=== PATIENT | male | born 1950 | race Caucasian/White ===

== ENCOUNTER 2018-04-06 10:11 | Emergency (ER) | payer OTHER, SELFPAY ==
[2018-04-06 10:12] VITALS: BP 138/85; PULSE 78; RESP 16; TEMP 35.6; O2SAT 95; BMI 27.8
[2018-04-06 10:25] VITALS: BP 138/100; PULSE 71; RESP 14; O2SAT 97
--- NOTE | 2018-04-06 10:26 | CT_ITS ---
STUDY: CT ABDOMEN AND PELVIS WITHOUT CONTRAST REASON FOR EXAM: Male, 68 years old. 4 day history of abdominal pain with constipation and difficulty with urination. RADIATION DOSAGE (If Supplied By Facility): CTDIvol = ( 9.28 ) mGy, DLP = ( 509.88 ) mGycm TECHNIQUE: Transaxial images were obtained from the dome of the diaphragm to the symphysis pubis with oral contrast, and without intravenous contrast. Sagittal and coronal images were reconstructed. Individualized dose optimization techniques were used for this CT. COMPARISON: Comparison is made with prior study dated July 06, 2016. FINDINGS: Increased markings at the lung bases with areas of confluence. This as improved as compared to prior study. Calcified granulomas in both lower lobes. Healed left rib fractures. Coronary artery calcification. Normal liver. Normal gallbladder and extrahepatic biliary system. Normal spleen. Normal pancreas. Normal bilateral adrenal glands. Normal right kidney. Normal left kidney. There is a small hiatal hernia. Normal small intestine. A large amount of fecal material is seen throughout the colon. The appendix is visualized and appears normal. There is scattered atherosclerotic calcification of the abdominal aorta, without a demonstrated aneurysm. Normal inferior vena cava. Normal retroperitoneum. Normal urinary bladder. There is a small umbilical hernia containing fat. Small left inguinal hernia containing fat. Demineralization of the lumbar vertebrae. CT/Abdomen/Pel W ORAL Cont Only IMPRESSION: Large amount of fecal material is seen throughout the colon. Findings suggestive of scarring at both lung bases. Evidence of healed left rib fractures. Electronically Signed: Errol Mckeon MD at 12:44 EDT Tel [phone], Service support ,
--- NOTE | 2018-04-06 10:30 | ED.DCSUM_ITS ---
- ER Visit Summary Date of Service: 04/06/18 Chief Complaint: Abdominal pain History of Present Illness: The patient is a 68 M constipation issues for the last 3 years. He states he has had small bowel movements for the past couple days. His last normal bowel movement was approximately week ago. He presents complaining of a four-day history of abdominal pain that is worse after eating. He states his abdomen gets more bloated. He states the pain seems to move all over his abdomen. He denies fever or chills. Patient does not have a physician and does not take any medications. Last p.o. intake was last evening. Physical Examination: Vital signs are unremarkable. Patient sitting upright in bed no acute distress. Head neck examination is unremarkable. Heart is regular rate and rhythm. Lung sounds are clear. Abdomen is soft with tenderness in the epigastric as well as the right upper quadrant region. Hypoactive bowel sounds are noted throughout. Skin examination reveals slight jaundice appearance. Test Results: CBC reveals normal white count hemoglobin 10.7. Chemistry studies reveal creatinine 1.63. BUN is normal. LFTs significant only for an AST of 44. Lipase is normal. Urine is normal. CT abdomen pelvis with p.o. contrast reveals large amount of fecal material throughout the colon. Scarring is noted at the lung bases. There is evidence of healed rib fractures. Emergency Department Course and Treatment: Patient was given IV fluids here. On repeat evaluation he does feel improved. I advised him that he may start having more bowel movements simply from the oral contrast for the CAT scan. He will be sent home with a bottle of GoLYTELY if he does not have significant results tonight. Treatment Plan: [] Disposition: Discharge Impression: Constipation This note was generated with [employer] dictation software. It may contain incorrect words, spelling, and punctuation that were not noted in review of the chart prior to signing ED Disposition - Plan for ED Patient: Chief Complaint: Abd Pain Referrals: Care Physician,No Primary [Primary Care Provider] -
[2018-04-06] MEDS: 0.9% Normal Saline 1,000 ML 150 ML IV (11:07)
[2018-04-06 11:13] LABS: Absolute Lymphocyte Count 1.18 X10^3/ul (0.83-4.51); Absolute Neutrophil Count 2.6 X10^3/uL (2.0-7.7); Basophil# 0.12 X10^3/uL; Basophil% 2.5 % (0-1); Eosinophil# 0.42 X10^3/uL; Eosinophils% 8.8 % (0-5); Hematocrit 32.2 % (40-54); Hemoglobin 10.7 g/dl (13.0-16.5); Lymphocyte # 1.18 X10^3/ul (4.0); Lymphocyte % 24.8 % (19-41); Mean Corp Hgb Conc 33.2 g/gl (32-36); Mean Corpuscular Hgb 31.5 pg (27.0-32.0); Mean Corpuscular Volume 94.7 fL (80-94); Mean Platelet Vol. 9.2 fl (6.2-12.0); Monocyte# 0.46 X10^3/uL; Monocyte% 9.7 % (0-10); Neutrophil # 2.57 X10^3/uL (2.7-7.7); Platelet Count 377 K/mm3 (150-450); RBC Distribution Width CV 15.2 % (11.6-14.6); White Blood Count 4.8 K/mm3 (4.4-11.0)
[2018-04-06 11:14] LABS: POSITIVE COUNT NO; POSITIVE DIFFERENTIAL NO; POSITIVE MORPHOLOGY NO
[2018-04-06 11:27] LABS: AST(SGOT) 44 U/L (15-37); Alanine Aminotransfer ALT/SGPT 22 U/L (16-61); Albumin, Serum 3.8 g/dL (3.2-5.0); Alkaline Phosphatase 53 U/L (45-117); Anion Gap 10 (5-15); BUN 13 mg/dL (7-18); BUN/Creat Ratio 7.9 RATIO (10-20); Bilirubin, Direct 0.15 mg/dL (0.00-0.30); Chloride 100 mmol/L (98-107); Creatinine, Serum 1.64 mg/dL (0.70-1.30); EST Glomerular Filtration Rate 45 mL/min (>60); Est Glom Filt Rate - Afr Amer 54 mL/min (>60); Estimated Creatinine Clearance 41.42 ml/min; Globulin 4.6 g/dL (2.2-4.2); Glucose 83 mg/dL (74-106); Lipase 120 U/L (73-393); Potassium 3.7 mmol/L (3.5-5.1); Protein, Total 8.4 g/dL (6.4-8.2); Sodium Level 134 mmol/L (136-145)
[2018-04-06 12:14] VITALS: BP 134/90; PULSE 61; RESP 16; O2SAT 98
[2018-04-06 12:44] LABS: Bacteria 0 SEEN /hpf (None Seen); Mucous, Urine 0 SEEN /hpf (<or=2+); Red Blood Cells-Urine 0 SEEN /hpf (0-5); Squamous Epithelial Cells - UA 0 SEEN /hpf (0-5); White Blood Cells 0 SEEN /hpf (0-5)
[2018-04-06 13:04] LABS: Color, Urine Yellow (Yellow); Glucose, Dipstick Normal (Normal); Ketone-Dipstick 5 mg/dl (Negative); Leukocyte Esterase-Dipstick Negative /ul (Negative); Nitrite-Dipstick Negative (Negative); Occult Blood-Urine Negative /ul (Negative); Protein-Dipstick 15 mg/dl (Negative); Specific Gravity, Urine 1.015 (1.002-1.030); Urine Bilirubin Dipstick Negative (Negative); Urine Clarity Clear (Clear); Urine Urobilinogen Normal (Normal); Urine pH 6.5 (5.0 - 8.0)
[2018-04-06 13:50] VITALS: BP 135/104; PULSE 67; RESP 16; O2SAT 97
--- NOTE | 2018-04-06 14:05 | ED.DEP ---
ED Disposition - Plan for ED Patient: Disposition: Home or Assisted Living Chief Complaint: Abd Pain Instructions: ED Constipation Additional Instructions: Physician directory provided to establish a primary care doctor.
[2018-04-06 14:21] VITALS: BP 148/91; PULSE 65; RESP 16; O2SAT 96
== END 2018-04-06 14:30 | disposition home or self-care (01) ==
PROVIDERS: Emergency Provider Emergency Medicine
DX: K59.00 Constipation, unspecified (principal); Z87.442 Personal history of urinary calculi; Z87.891 Personal history of nicotine dependence
CPT/HCPCS: 74176; 80048; 80076; 81001; 83690; 85025; 96360; 96361; 99283; J7030

== ENCOUNTER 2018-04-09 19:27 | Emergency (ER) | payer OTHER, SELFPAY ==
[2018-04-09 19:29] VITALS: BP 128/83; PULSE 81; RESP 17; TEMP 36.9; O2SAT 98; BMI 27.8
--- NOTE | 2018-04-09 19:59 | CT_ITS ---
STUDY: CT ABDOMEN AND PELVIS WITHOUT CONTRAST REASON FOR EXAM: Male, 68 years old. Abdominal pain. RADIATION DOSAGE (If Supplied By Facility): CTDIvol = ( 8.04 ) mGy, DLP = ( 417.76 ) mGycm TECHNIQUE: Transaxial images were obtained from the dome of the diaphragm to the symphysis pubis without oral contrast, and without intravenous contrast. Sagittal and coronal images were reconstructed. Individualized dose optimization techniques were used for this CT. COMPARISON: 04/06/2018. FINDINGS: Mild fibrotic changes are again noted in the lung bases. Multiple calcified granulomas are noted. The visualized portions of the heart are within normal limits. Normal liver. Normal gallbladder and extrahepatic biliary system. Normal spleen. Normal pancreas. Normal bilateral adrenal glands. Normal right kidney. Normal left kidney. The aorta is normal in caliber, with moderate atherosclerotic calcification. The colon is mildly distended, increased compared to the prior study. Stool burden has significantly decreased compared to prior examination. The rectum is moderately distended and stool-filled, increased compared to the prior study. There is no proximal small bowel obstruction. The appendix is normal. There is no free fluid, free air, or organized collection. Normal urinary bladder. Normal abdominal wall. Old left rib fractures are noted, with internal fixation. CT/Abdomen/Pelvis without Cont IMPRESSION: 1. Mildly increased gaseous colonic distention is presumed secondary to laxative treatment. Please correlate. There is significant interval decrease in stool burden. 2. Rectum is moderately distended and stool-filled, increased compared to the prior study, consistent with interval passage of stool. 3. Mild chronic fibrosis in the lung bases. 4. Old granulomatous disease. Additional chronic findings are noted above. Electronically Signed: Mary Gates MD at 20:49 EDT Tel , Service support ,
[2018-04-09] MEDS: 0.9% Normal Saline 1,000 ML 125 ML IV (20:21)
[2018-04-09 20:26] LABS: Absolute Lymphocyte Count 1.58 X10^3/ul (0.83-4.51); Absolute Neutrophil Count 2.7 X10^3/uL (2.0-7.7); Basophil# 0.07 X10^3/uL; Basophil% 1.3 % (0-1); Eosinophil# 0.53 X10^3/uL; Eosinophils% 9.9 % (0-5); Hematocrit 33.9 % (40-54); Hemoglobin 11.4 g/dl (13.0-16.5); Lymphocyte # 1.58 X10^3/ul (4.0); Lymphocyte % 29.6 % (19-41); Mean Corp Hgb Conc 33.6 g/gl (32-36); Mean Corpuscular Hgb 31.5 pg (27.0-32.0); Mean Corpuscular Volume 93.6 fL (80-94); Monocyte# 0.42 X10^3/uL; Monocyte% 7.9 % (0-10); Neutrophil # 2.73 X10^3/uL (2.7-7.7); Neutrophil % 51.3 % (47-70); Platelet Count 377 K/mm3 (150-450); RBC Distribution Width CV 15.2 % (11.6-14.6); RBC Distribution Width SD 52.1 fl (35.1-43.9); Red Blood Count 3.62 M/mm3 (4.6-6.2); White Blood Count 5.3 K/mm3 (4.4-11.0)
[2018-04-09 20:27] LABS: POSITIVE COUNT NO; POSITIVE DIFFERENTIAL NO; POSITIVE MORPHOLOGY NO
[2018-04-09 20:37] LABS: ALB/GLOB Ratio 0.9 RATIO (0.9-2.4); AST(SGOT) 44 U/L (15-37); Alanine Aminotransfer ALT/SGPT 20 U/L (16-61); Albumin, Serum 3.9 g/dL (3.2-5.0); Alkaline Phosphatase 53 U/L (45-117); Anion Gap 8 (5-15); BUN 10 mg/dL (7-18); BUN/Creat Ratio 7.1 RATIO (10-20); Calcium,Total 8.9 mg/dL (8.5-10.1); Chloride 102 mmol/L (98-107); Creatinine, Serum 1.41 mg/dL (0.70-1.30); EST Glomerular Filtration Rate 53 mL/min (>60); Est Glom Filt Rate - Afr Amer 65 mL/min (>60); Estimated Creatinine Clearance 48.18 ml/min; Globulin 4.5 g/dL (2.2-4.2); Glucose 82 mg/dL (74-106); Potassium 4.1 mmol/L (3.5-5.1); Protein, Total 8.4 g/dL (6.4-8.2); Sodium Level 134 mmol/L (136-145)
[2018-04-09 20:48] LABS: Bacteria 0 SEEN /hpf (None Seen); Mucous, Urine 0 SEEN /hpf (<or=2+); Red Blood Cells-Urine 0 SEEN /hpf (0-5); Squamous Epithelial Cells - UA 0 SEEN /hpf (0-5); White Blood Cells 0 SEEN /hpf (0-5)
[2018-04-09 20:49] LABS: Lactic Acid 0.7 mmol/L (0.4-2.0)
[2018-04-09 20:53] LABS: Color, Urine Yellow (Yellow); Glucose, Dipstick Normal (Normal); Ketone-Dipstick 5 mg/dl (Negative); Leukocyte Esterase-Dipstick 25 /ul (Negative); Nitrite-Dipstick Negative (Negative); Occult Blood-Urine 10 /ul (Negative); Protein-Dipstick 30 mg/dl (Negative); Specific Gravity, Urine 1.015 (1.002-1.030); Urine Bilirubin Dipstick Negative (Negative); Urine Clarity Clear (Clear); Urine Urobilinogen 4 mg/dl (Normal)
[2018-04-09 23:01] VITALS: BP 134/101; PULSE 80; RESP 24; O2SAT 94
--- NOTE | 2018-04-09 23:13 | ED.DCSUM_ITS ---
- ER Visit Summary Date of Service: 04/09/18 Chief Complaint: [Constipation and generalized weakness] History of Present Illness: The patient is a 68 M [presents the emergency department complaining of constipation. Patient states that he generally just feels weak since about noon today. Patient was seen in the emergency department 3 days ago and had a CAT scan of the abdomen and pelvis with IV and p.o. contrast. Patient was found to be constipated and sent home with a gallon of what he thinks may be GoLYTELY. Patient states that he drank the GoLYTELY and has had small amounts of some watery stools but still feels distended and bloated. Patient states that he had a hard time urinating earlier in the day. He denies fever. He denies vomiting. He denies blood in stool or black tarry stool.] Physical Examination: [HEENT-PERRLA, EOMI. Cranial nerves II through XII grossly intact. TMs clear. Mucous membranes moist. No adenopathy. Cardiovascular-regular rate and rhythm without murmur or ectopy Lungs-clear to auscultation, chest wall stable without crepitus or subcu emphysema Abdomen-normoactive bowel sounds, soft. Patient has some mild diffuse tenderness. Abdomen slightly distended. Slightly diminished bowel sounds. There is no rebound, rigidity, or perineal signs. Rectal exam-on rectal exam patient had hard stool within the rectal vault but it was too distal to digitally disimpact. Extremities-intact ?4, normal range of motion, normal pulses, atraumatic] Test Results: [CBC with differential obtained showed a white count of 5.3, hemoglobin 11.4, hematocrit 34, platelets 377. Chemistry showed a sodium 134, potassium 4.1, chloride 102, CO2 24. B1 was 10 and creatinine 1.41. Lactate was 0.7. LFTs were normal. Urinalysis was normal. CT scan of the abdomen and pelvis without contrast showed markedly improvement of the large fecal burden however he continues to have large amount of stool within the rectum.] Emergency Department Course and Treatment: [Patient was given a soapsuds enema and had large results with this. Patient at this time states I feel like a new man.] Treatment Plan: [Patient advised use MiraLAX daily and increase fiber intake. Patient advised to drink adequate amounts of water.] Disposition: [Discharged home in stable condition] Impression: [Constipation Abdominal pain-resolved] This note was generated with [employer] dictation software. It may contain incorrect words, spelling, and punctuation that were not noted in review of the chart prior to signing ED Disposition - Plan for ED Patient: Chief Complaint: Dizziness Referrals: Care Physician,No Primary [Primary Care Provider] -
--- NOTE | 2018-04-09 23:13 | ED.DEP ---
ED Disposition - Plan for ED Patient: Chief Complaint: Dizziness Instructions: ED Constipation, ED Weakness [facility] Referrals: Care Physician,No Primary [Primary Care Provider] - Richardson Rico MD [STAFF PHYSICIAN] - 3-5 Days
[2018-04-09 23:42] VITALS: BP 144/90; PULSE 77; RESP 14; O2SAT 94
== END 2018-04-09 23:42 | disposition home or self-care (01) ==
PROVIDERS: Emergency Provider Emergency Medicine
DX: K59.00 Constipation, unspecified (principal); R10.9 Unspecified abdominal pain; R53.1 Weakness; Z87.442 Personal history of urinary calculi; Z87.891 Personal history of nicotine dependence
CPT/HCPCS: 74176; 80053; 81001; 83605; 85025; 96360; 96361; 99285; J7030; A4216

== ENCOUNTER 2019-01-26 17:52 | Emergency (ER) | payer OTHER, SELFPAY ==
[2019-01-26 17:54] VITALS: BP 133/80; PULSE 72; RESP 20; TEMP 36.1; O2SAT 97; BMI 27.4
--- NOTE | 2019-01-26 18:26 | CT_ITS ---
STUDY: CT ABDOMEN AND PELVIS WITHOUT CONTRAST REASON FOR EXAM: Male, 69 years old. 10 pound weight loss in 5 weeks, dizzy, weak, constipated RADIATION DOSAGE (If Supplied By Facility): CTDIvol = ( 21.75 ) mGy, DLP = ( 923.23 ) mGycm TECHNIQUE: Transaxial images were obtained from the dome of the diaphragm to the symphysis pubis without oral contrast, and without intravenous contrast. Sagittal and coronal images were reconstructed. Individualized dose optimization techniques were used for this CT. COMPARISON: Prior study of 04/09/2018 FINDINGS: There are bibasilar calcified nodules consistent with granulomas. The visualized portions of the heart are within normal limits. Normal liver. Normal gallbladder and extrahepatic biliary system. Normal spleen. Normal pancreas. Normal bilateral adrenal glands. Normal right kidney. Normal left kidney. Normal visualized stomach. Normal small intestine. There is a large colonic stool burden. There is a large amount of stool in the rectal vault. The appendix is visualized and appears normal. There are calcified plaques of the abdominal aorta and common iliac arteries. Normal inferior vena cava. Normal retroperitoneum. Normal urinary bladder. The prostate, seminal vesicles, and seminal vesicle angles appear normal. There is a small fat-containing umbilical hernia. Normal osseous structures. CT/Abdomen/Pelvis W IV Cont ONLY IMPRESSION: 1. Calcified granulomas of the lung bases. 2. Large colonic stool burden. 3. Calcified plaques of the abdominal aorta and common iliac arteries. 4. Small fat-containing umbilical hernia. 5. There is no evidence of free intra-abdominal or intrapelvic air, fluid, or inflammatory process. Electronically Signed: David Asif MD at 19:30 EDT , Service support ,
[2019-01-26] MEDS: 0.9% Normal Saline 1,000 ML 1000 ML IV (18:38)
[2019-01-26 18:48] LABS: Absolute Lymphocyte Count 1.72 X10^3/ul (0.83-4.51); Absolute Neutrophil Count 2.3 X10^3/uL (2.0-7.7); Basophil# 0.13 X10^3/uL; Basophil% 2.5 % (0-1); Eosinophil# 0.72 X10^3/uL; Hematocrit 31.7 % (40-54); Hemoglobin 10.8 g/dl (13.0-16.5); Lymphocyte # 1.72 X10^3/ul (4.0); Lymphocyte % 33.4 % (19-41); Mean Corp Hgb Conc 34.1 g/gl (32-36); Mean Corpuscular Hgb 31.6 pg (27.0-32.0); Mean Corpuscular Volume 92.7 fL (80-94); Mean Platelet Vol. 9.1 fl (6.2-12.0); Monocyte# 0.32 X10^3/uL; Monocyte% 6.2 % (0-10); Neutrophil # 2.25 X10^3/uL (2.7-7.7); Neutrophil % 43.7 % (47-70); Platelet Count 383 K/mm3 (150-450); RBC Distribution Width CV 14.6 % (11.6-14.6); RBC Distribution Width SD 49.6 fl (35.1-43.9); Red Blood Count 3.42 M/mm3 (4.6-6.2); White Blood Count 5.2 K/mm3 (4.4-11.0)
[2019-01-26 18:49] LABS: POSITIVE COUNT NO; POSITIVE DIFFERENTIAL NO; POSITIVE MORPHOLOGY NO
[2019-01-26 18:56] LABS: ALB/GLOB Ratio 0.8 RATIO (0.9-2.4); AST(SGOT) 55 U/L (15-37); Alanine Aminotransfer ALT/SGPT 21 U/L (16-61); Albumin, Serum 3.8 g/dL (3.2-5.0); Alkaline Phosphatase 51 U/L (45-117); Anion Gap 4 (5-15); BUN 11 mg/dL (7-18); BUN/Creat Ratio 7.1 RATIO (10-20); Calcium,Total 9.3 mg/dL (8.5-10.1); Chloride 99 mmol/L (98-107); Creatinine, Serum 1.54 mg/dL (0.70-1.30); EST Glomerular Filtration Rate 48 mL/min (>60); Est Glom Filt Rate - Afr Amer 58 mL/min (>60); Globulin 4.8 g/dL (2.2-4.2); Glucose 80 mg/dL (74-106); Lipase 239 U/L (73-393); Potassium 4.1 mmol/L (3.5-5.1); Protein, Total 8.6 g/dL (6.4-8.2); Sodium Level 129 mmol/L (136-145)
--- NOTE | 2019-01-26 21:42 | ED.DCSUM_ITS ---
- ER Visit Summary Date of Service: 01/26/19 Chief Complaint: Abdominal pain History of Present Illness: The patient is a 69 M who states he has been feeling weak and dizzy for the past couple weeks. He has not had a bowel movement he reports for 4 weeks. States that whenever he eats he feels bloated. He denies any fevers. No urinary symptoms. The lightheadedness and dizziness come whenever he is having cramping. He tried some small enemas at home with no relief. He states that he had similar episode last fall. He states that he tried to take some oral medication at that time but it did not work so he came here and got an enema and was successful. States he has begun to lose weight because he has not been eating as much. He also feels dehydrated especially with the heat and humidity Physical Examination: Afebrile vital signs are stable Gen: Well-nourished well-developed Head: Normocephalic atraumatic Eyes: Perrl EOMI ENT: TMs clear no rhinorrhea moist mucous membranes Neck: Supple no lymphadenopathy no JVD nontender CVS: Regular rate rhythm no murmurs normal S1-S2 Respiratory: No distress clear to auscultation bilaterally chest nontender Abdomen: Soft nontender nondistended normal bowel sounds no masses R: There is no fecal impaction. There is stool in the rectal vault but soft Back: Nontender Extremity: Nontender no edema Skin: Normal color no rash Neuro: alert orientated ?3 CN II-XII intact normal strength sensation reflexes gait cerebellar Psych: Normal affect normal mood Test Results: Basic labs negative. CT of the abdomen pelvis demonstrated large fecal material in the colon. Emergency Department Course and Treatment: The patient received IV fluids. He does not clinically have a fecal impaction. Patient received an enema. He did not wish to sit on the toilet. He kept requesting more enemas. At this point patient will be given magnesium citrate to take. As well as Colace. He is to follow-up with primary care Impression: 1. Acute abdominal pain 2. Constipation This note was generated with [employer] software. It may contain incorrect words, spelling, and punctuation that were not noted in review of the chart prior to signing ED Disposition - Plan for ED Patient: Disposition: Home or Assisted Living Instructions: CONSTIPATION (Adult) Prescriptions: Docusate Sodium [Colace] 100 mg PO DAILY #30 cap Prescription Printed Magnesium Citrate 296 ml PO BID #4 bot Prescription Printed Referrals: Keaton Holt MD [STAFF PHYSICIAN] - (as needed for primary care)
[2019-01-26 22:03] VITALS: BP 131/120; RESP 18; O2SAT 98
[2019-01-26 22:04] VITALS: PULSE 68; RESP 18
== END 2019-01-26 22:06 | disposition home or self-care (01) ==
PROVIDERS: Emergency Provider Emergency Medicine
DX: K59.00 Constipation, unspecified (principal); R10.9 Unspecified abdominal pain; R53.1 Weakness; R42 Dizziness and giddiness; Z87.891 Personal history of nicotine dependence
CPT/HCPCS: 74177; 80053; 83690; 85025; 96360; 96361; 99285; J7030; Q9967; A4216

== ENCOUNTER → 2019-03-13 | Outpatient (CLI) | payer SELFPAY, OTHER ==
[2019-03-13 07:35] LABS: Absolute Lymphocyte Count 2.27 X10^3/uL (0.83-4.51); Basophil# 0.13 X10^3/uL; Basophil% 1.9 % (0-1); Eosinophil# 0.81 X10^3/uL; Eosinophils% 12.1 % (0-5); Hematocrit 33.7 % (40-54); Hemoglobin 11.3 g/dL (13.0-16.5); Lymphocyte # 2.27 X10^3/ul (4.0); Mean Corp Hgb Conc 33.5 g/dL (32-36); Mean Corpuscular Hgb 31.7 pg (27.0-32.0); Mean Corpuscular Volume 94.4 fL (80-94); Mean Platelet Vol. 8.9 fl (6.2-12.0); Monocyte# 0.42 X10^3/uL; Monocyte% 6.3 % (0-10); NRBC Flagged by Analyzer 0 % (0-5); Neutrophil # 3.02 X10^3/uL (2.7-7.7); Neutrophil % 45.4 % (47-70); Platelet Count 363 K/mm3 (150-450); RBC Distribution Width CV 14.6 % (11.6-14.6); Red Blood Count 3.57 M/mm3 (4.6-6.2); White Blood Count 6.7 K/mm3 (4.4-11.0)
--- NOTE | 2019-03-13 07:43 | US_ITS ---
STUDY: ABDOMINAL ULTRASOUND - RIGHT UPPER QUADRANT REASON FOR VISIT: Male, 69 years old. Right upper quadrant pain, constipation TECHNIQUE: Ultrasound evaluation of the right upper quadrant was performed with real-time and static abbott-scale imaging. TECHNICAL QUALITY: Limited. Examination limited by bowel gas. COMPARISON: None. FINDINGS: Liver: The liver measures 14.9 cm. There is normal echogenicity of the liver. The bile ducts are within normal limits. There is hepatic color flow. The direction of portal flow is hepatopetal. There is no demonstrated mass lesion. Gallbladder: Normal distended gallbladder. The gallbladder wall measures 2.2 mm. There is a negative sonographic Donaldson's sign. There is no pericholecystic fluid. There is a solitary echogenic gallstone within the gallbladder. Common Bile Duct (C.B.D.): The common bile duct measures 2.9 mm. Pancreas: Visualized pancreas is sonographically normal Right Kidney: Normal size of the right kidney. The right kidney measures 9.3 x 4.9 x 5.3 cm. Normal renal cortex. The right cortex measures 1.4 cm. There is no demonstrated renal mass or cyst. There is no right hydronephrosis. US/Abdomen Limited IMPRESSION: Cholelithiasis, no sonographic evidence of acute cholecystitis Electronically Signed: Prosper Gold MD at 17:11 EDT , Service support ,
[2019-03-13 08:07] LABS: ALB/GLOB Ratio 0.8 RATIO (0.9-2.4); AST(SGOT) 54 U/L (15-37); Alanine Aminotransfer ALT/SGPT 27 U/L (16-61); Albumin, Serum 3.9 g/dL (3.2-5.0); Alkaline Phosphatase 56 U/L (45-117); Anion Gap 4 (5-15); BUN 12 mg/dL (7-18); Calcium,Total 9.1 mg/dL (8.5-10.1); Chloride 100 mmol/L (98-107); EST Glomerular Filtration Rate 50 mL/min (>60); Est Glom Filt Rate - Afr Amer 60 mL/min (>60); Globulin 5.1 g/dL (2.2-4.2); Glucose 89 mg/dL (74-106); Potassium 4.1 mmol/L (3.5-5.1); Sodium Level 132 mmol/L (136-145)
== END | disposition home or self-care (01) ==
DX: R14.0 Abdominal distension (gaseous) (principal); K59.00 Constipation, unspecified; D64.9 Anemia, unspecified; R94.5 Abnormal results of liver function studies; R63.4 Abnormal weight loss; R11.0 Nausea
CPT/HCPCS: 36415; 76705; 80053; 84443; 85025

== ENCOUNTER → 2019-05-02 11:32 | Outpatient (CLI) | payer OTHER, SELFPAY ==
--- NOTE | 2019-05-02 11:40 | RAD_ITS ---
STUDY: X-RAY - RIGHT KNEE REASON FOR EXAM: Male, 69 years old. Knee pain TECHNIQUE: 4 view(s) of the knee. COMPARISON: None. FINDINGS: There is chondrocalcinosis noted of the knee. This can be seen with metabolic disorders such as CPPD. Vascular calcifications are seen. There is degenerative changes with mild medial compartmental narrowing. Adjacent to the medial tibial plateau there is a soft tissue 3 mm hyperdensity may represent a calcification or foreign body. There is a small joint effusion. No acute fracture or dislocation identified. RAD/Knee 4 or More Views IMPRESSION: Small joint effusion. Degenerative changes. Question soft tissue calcification versus foreign body adjacent to the medial tibial plateau. Other findings as above. Electronically Signed: Jorje Gray, at 3:59 EDT Tel , Service support ,
--- NOTE | 2019-05-02 11:40 | RAD_ITS ---
STUDY: X-RAY - LEFT KNEE REASON FOR EXAM: Male, 69 years old. Knee pain TECHNIQUE: 4 view(s) of the knee. COMPARISON: None. FINDINGS: There is chondrocalcinosis noted of the knee. This can be seen with metabolic disorders such as CPPD. Vascular calcifications are seen. There is degenerative changes with mild medial compartmental narrowing. There is a small joint effusion. No acute fracture or dislocation identified. RAD/Knee 4 or More Views IMPRESSION: Small joint effusion. Degenerative changes. No acute fractures seen. Other findings as above. Electronically Signed: Jorje Gray, at 3:59 EDT Tel , Service support ,
[2019-05-02 14:07] LABS: Absolute Lymphocyte Count 1.42 X10^3/uL (0.83-4.51); Absolute Neutrophil Count 5.1 X10^3/uL (2.0-7.7); Basophil# 0.12 X10^3/uL; Basophil% 1.5 % (0-1); Hematocrit 31.7 % (40-54); Hemoglobin 9.9 g/dL (13.0-16.5); Lymphocyte # 1.42 X10^3/ul (4.0); Lymphocyte % 17.4 % (19-41); Mean Corp Hgb Conc 31.2 g/dL (32-36); Mean Corpuscular Hgb 30.2 pg (27.0-32.0); Mean Corpuscular Volume 96.6 fL (80-94); Mean Platelet Vol. 9.4 fl (6.2-12.0); Monocyte# 0.63 X10^3/uL; Monocyte% 7.7 % (0-10); NRBC Flagged by Analyzer 0 % (0-5); Neutrophil # 5.06 X10^3/uL (2.7-7.7); Platelet Count 469 K/mm3 (150-450); RBC Distribution Width CV 14.6 % (11.6-14.6); RBC Distribution Width SD 51.9 fl (35.1-43.9); Red Blood Count 3.28 M/mm3 (4.6-6.2); White Blood Count 8.2 K/mm3 (4.4-11.0)
[2019-05-02 14:14] LABS: Protein, Urine (Random) 18.6 mg/dL (<11.9); Protein:Creat Ratio 219 mg/g CRE (0-200)
[2019-05-02 14:34] LABS: Vitamin B12 782 pg/mL (211-911)
[2019-05-02 14:39] LABS: Anion Gap 8 (5-15); BUN 15 mg/dL (7-18); BUN/Creat Ratio 13.9 RATIO (10-20); Calcium,Total 8.9 mg/dL (8.5-10.1); Chloride 103 mmol/L (98-107); Creatinine, Serum 1.08 mg/dL (0.70-1.30); EST Glomerular Filtration Rate 72 mL/min (>60); Est Glom Filt Rate - Afr Amer 88 mL/min (>60); Ferritin 174 ng/mL (26-388); Glucose 70 mg/dL (74-106); Iron 52 ug/dL (65-175); Iron Binding Capacity,Total 240 ug/dL (250-450); PERCENT IRON SATURATION 21.7 % (15.0-55.0); Potassium 4.5 mmol/L (3.5-5.1); Sodium Level 139 mmol/L (136-145)
== END ==
PROVIDERS: Family Provider Family Medicine; PCP Family Medicine; Referring Provider Family Medicine; Visit Provider Family Medicine
DX: M25.561 Pain in right knee (principal); M25.562 Pain in left knee; D64.9 Anemia, unspecified; R94.4 Abnormal results of kidney function studies
CPT/HCPCS: 36415; 73564; 80048; 82570; 82607; 82728; 82746; 83540; 83550; 84156; 85025

== ENCOUNTER → 2019-05-29 11:35 | Outpatient (CLI) | payer OTHER, SELFPAY ==
[2019-05-29 14:05] LABS: Absolute Neutrophil Count 3.6 X10^3/uL (2.0-7.7); Basophil# 0.13 X10^3/uL; Basophil% 1.9 % (0-1); Eosinophil# 0.93 X10^3/uL; Eosinophils% 13.5 % (0-5); Hematocrit 33.3 % (40-54); Hemoglobin 10.6 g/dL (13.0-16.5); Lymphocyte % 26.1 % (19-41); Mean Corp Hgb Conc 31.8 g/dL (32-36); Mean Corpuscular Hgb 29.9 pg (27.0-32.0); Mean Corpuscular Volume 94.1 fL (80-94); Mean Platelet Vol. 9.1 fl (6.2-12.0); Monocyte# 0.48 X10^3/uL; NRBC Flagged by Analyzer 0 % (0-5); Neutrophil # 3.55 X10^3/uL (2.7-7.7); Neutrophil % 51.4 % (47-70); Platelet Count 421 K/mm3 (150-450); RBC Distribution Width CV 14.6 % (11.6-14.6); RBC Distribution Width SD 50.4 fl (35.1-43.9); Red Blood Count 3.54 M/mm3 (4.6-6.2); White Blood Count 6.9 K/mm3 (4.4-11.0)
== END ==
PROVIDERS: Family Provider Family Medicine; PCP Family Medicine; Referring Provider Family Medicine; Visit Provider Family Medicine
DX: D50.9 Iron deficiency anemia, unspecified (principal)
CPT/HCPCS: 36415; 85025

== ENCOUNTER → 2019-06-26 09:37 | Outpatient (CLI) | payer OTHER, SELFPAY ==
[2019-06-26 11:34] LABS: ALB/GLOB Ratio 0.8 RATIO (0.9-2.4); AST(SGOT) 60 U/L (15-37); Alanine Aminotransfer ALT/SGPT 42 U/L (16-61); Albumin, Serum 3.8 g/dL (3.2-5.0); Alkaline Phosphatase 56 U/L (45-117); Anion Gap 6 (5-15); BUN 12 mg/dL (7-18); Calcium,Total 9.4 mg/dL (8.5-10.1); Chloride 101 mmol/L (98-107); Creatinine, Serum 1.34 mg/dL (0.70-1.30); EST Glomerular Filtration Rate 56 mL/min (>60); Est Glom Filt Rate - Afr Amer 68 mL/min (>60); Globulin 4.7 g/dL (2.2-4.2); Glucose 90 mg/dL (74-106); Potassium 3.6 mmol/L (3.5-5.1); Protein, Total 8.5 g/dL (6.4-8.2); Sodium Level 136 mmol/L (136-145)
== END ==
PROVIDERS: Family Provider Family Medicine; PCP Family Medicine; Referring Provider Nurse Practitioner Adult Health; Visit Provider Nurse Practitioner Adult Health
DX: E03.8 Other specified hypothyroidism (principal)
CPT/HCPCS: 36415; 80053; 84443

== ENCOUNTER → 2019-08-27 14:04 | Outpatient (CLI) | payer OTHER, SELFPAY ==
[2019-08-27 17:38] LABS: ALB/GLOB Ratio 0.9 RATIO (0.9-2.4); AST(SGOT) 54 U/L (15-37); Alanine Aminotransfer ALT/SGPT 35 U/L (16-61); Albumin, Serum 3.8 g/dL (3.2-5.0); Alkaline Phosphatase 44 U/L (45-117); Anion Gap 5 (5-15); BUN 14 mg/dL (7-18); BUN/Creat Ratio 9.5 RATIO (10-20); Calcium,Total 9.4 mg/dL (8.5-10.1); Chloride 101 mmol/L (98-107); Creatinine, Serum 1.47 mg/dL (0.70-1.30); EST Glomerular Filtration Rate 51 mL/min (>60); Est Glom Filt Rate - Afr Amer 61 mL/min (>60); Globulin 4.4 g/dL (2.2-4.2); Glucose 61 mg/dL (74-106); Potassium 3.9 mmol/L (3.5-5.1); Protein, Total 8.2 g/dL (6.4-8.2); Sodium Level 135 mmol/L (136-145)
== END ==
PROVIDERS: PCP Family Medicine; Referring Provider Internal Medicine Endocrinology, Diabetes & Metabolism; Visit Provider Internal Medicine Endocrinology, Diabetes & Metabolism
DX: E03.8 Other specified hypothyroidism (principal)
CPT/HCPCS: 36415; 80053; 84443

== ENCOUNTER → 2019-09-05 09:02 | Outpatient (CLI) | payer OTHER, SELFPAY ==
[2019-09-05 09:04] LABS: Bacteria 0 SEEN /hpf (None Seen); Mucous, Urine 0 SEEN /hpf (<or=2+); Red Blood Cells-Urine 0 SEEN /hpf (0-5); Squamous Epithelial Cells - UA 0 SEEN /hpf (0-5); White Blood Cells 0 SEEN /hpf (0-5)
[2019-09-05 10:28] LABS: Color, Urine Yellow (Yellow); Glucose, Dipstick Normal (Normal); Ketone-Dipstick Negative (Negative); Leukocyte Esterase-Dipstick Negative /ul (Negative); Nitrite-Dipstick Negative (Negative); Occult Blood-Urine Negative /ul (Negative); Protein-Dipstick 30 mg/dl (Negative); Urine Bilirubin Dipstick Negative (Negative); Urine Clarity Clear (Clear); Urine Urobilinogen Normal (Normal); Urine pH 6.5 (5.0 - 8.0)
[2019-09-05 10:31] LABS: Absolute Lymphocyte Count 1.94 X10^3/uL (0.83-4.51); Absolute Neutrophil Count 3.5 X10^3/uL (2.0-7.7); Basophil# 0.13 X10^3/uL; Basophil% 1.9 % (0-1); Eosinophil# 0.82 X10^3/uL; Eosinophils% 11.8 % (0-5); Hematocrit 35.3 % (40-54); Hemoglobin 11.6 g/dL (13.0-16.5); Lymphocyte # 1.94 X10^3/ul (4.0); Lymphocyte % 27.9 % (19-41); Mean Corp Hgb Conc 32.9 g/dL (32-36); Mean Corpuscular Volume 91.2 fL (80-94); Mean Platelet Vol. 9.5 fl (6.2-12.0); Monocyte# 0.54 X10^3/uL; Monocyte% 7.8 % (0-10); NRBC Flagged by Analyzer 0 % (0-5); Neutrophil # 3.51 X10^3/uL (2.7-7.7); Neutrophil % 50.3 % (47-70); Platelet Count 371 K/mm3 (150-450); RBC Distribution Width CV 15.7 % (11.6-14.6); RBC Distribution Width SD 52.6 fl (35.1-43.9); Red Blood Count 3.87 M/mm3 (4.6-6.2)
[2019-09-05 10:50] LABS: Protein, Urine (Random) 30.4 mg/dL (<11.9); Protein:Creat Ratio 211 mg/g CRE (0-200)
[2019-09-05 10:51] LABS: Ferritin 158 ng/mL (26-388); Iron 76 ug/dL (65-175); Iron Binding Capacity,Total 308 ug/dL (250-450); PTHIN 26.8 pg/mL (18.4-80.1); Phosphorus 3.7 mg/dL (2.5-4.9)
[2019-09-05 10:53] LABS: Vitamin D,25 Hydroxy 23.4 ng/mL (29.95-100.01)
== END ==
PROVIDERS: PCP Family Medicine; Referring Provider Family Medicine; Visit Provider Family Medicine
DX: D50.9 Iron deficiency anemia, unspecified (principal); N18.3 Chronic kidney disease, stage 3 (moderate)
CPT/HCPCS: 36415; 81001; 82306; 82570; 82728; 83540; 83550; 83970; 84100; 84156; 85025

== ENCOUNTER → 2019-12-27 13:55 | Outpatient (CLI) | payer OTHER, SELFPAY ==
[2019-12-27 17:27] LABS: Absolute Lymphocyte Count 1.96 X10^3/uL (0.83-4.51); Absolute Neutrophil Count 4.2 X10^3/uL (2.0-7.7); Basophil# 0.14 X10^3/uL; Basophil% 1.8 % (0-1); Eosinophil# 0.84 X10^3/uL; Eosinophils% 10.7 % (0-5); Hematocrit 34.9 % (40-54); Hemoglobin 11.2 g/dL (13.0-16.5); Lymphocyte # 1.96 X10^3/ul (4.0); Lymphocyte % 24.9 % (19-41); Mean Corp Hgb Conc 32.1 g/dL (32-36); Mean Corpuscular Hgb 29.9 pg (27.0-32.0); Mean Corpuscular Volume 93.1 fL (80-94); Mean Platelet Vol. 9.2 fl (6.2-12.0); Monocyte# 0.66 X10^3/uL; Monocyte% 8.4 % (0-10); NRBC Flagged by Analyzer 0 % (0-5); Neutrophil # 4.23 X10^3/uL (2.7-7.7); Neutrophil % 53.8 % (47-70); Platelet Count 486 K/mm3 (150-450); RBC Distribution Width CV 13.8 % (11.6-14.6); RBC Distribution Width SD 46.6 fl (35.1-43.9); Red Blood Count 3.75 M/mm3 (4.6-6.2); White Blood Count 7.9 K/mm3 (4.4-11.0)
[2019-12-27 17:41] LABS: Vitamin D,25 Hydroxy 22.1 ng/mL
[2019-12-27 17:55] LABS: ALB/GLOB Ratio 0.7 RATIO (0.9-2.4); AST(SGOT) 20 U/L (15-37); Alanine Aminotransfer ALT/SGPT 21 U/L (16-61); Albumin, Serum 3.3 g/dL (3.2-5.0); Alkaline Phosphatase 73 U/L (45-117); Anion Gap 9 (5-15); BUN 17 mg/dL (7-18); BUN/Creat Ratio 13.7 RATIO (10-20); Calcium,Total 9.2 mg/dL (8.5-10.1); Chloride 100 mmol/L (98-107); Creatinine, Serum 1.24 mg/dL (0.70-1.30); EST Glomerular Filtration Rate 62 mL/min (>60); Est Glom Filt Rate - Afr Amer 75 mL/min (>60); Glucose 105 mg/dL (74-106); Iron 42 ug/dL (65-175); Potassium 3.7 mmol/L (3.5-5.1); Protein, Total 8.3 g/dL (6.4-8.2); Sodium Level 136 mmol/L (136-145); T4 Free Direct 0.44 ng/dL (0.76-1.46)
== END ==
PROVIDERS: PCP Family Medicine; Referring Provider Family Medicine; Visit Provider Family Medicine
DX: E03.9 Hypothyroidism, unspecified (principal); D64.9 Anemia, unspecified; E55.9 Vitamin D deficiency, unspecified; N18.3 Chronic kidney disease, stage 3 (moderate)
CPT/HCPCS: 36415; 80053; 82306; 83540; 84439; 84443; 85025

== ENCOUNTER → 2020-02-07 14:21 | Outpatient (CLI) | payer OTHER, SELFPAY ==
[2020-02-07 17:29] LABS: Absolute Lymphocyte Count 1.76 X10^3/uL (0.83-4.51); Absolute Neutrophil Count 4.4 X10^3/uL (2.0-7.7); Basophil# 0.12 X10^3/uL; Basophil% 1.6 % (0-1); Eosinophil# 0.62 X10^3/uL; Hematocrit 34.9 % (40-54); Lymphocyte # 1.76 X10^3/ul (4.0); Lymphocyte % 22.8 % (19-41); Mean Corp Hgb Conc 31.5 g/dL (32-36); Mean Corpuscular Hgb 28.9 pg (27.0-32.0); Mean Corpuscular Volume 91.6 fL (80-94); Mean Platelet Vol. 9.5 fl (6.2-12.0); Monocyte# 0.84 X10^3/uL; Monocyte% 10.9 % (0-10); NRBC Flagged by Analyzer 0 % (0-5); Neutrophil # 4.35 X10^3/uL (2.7-7.7); Neutrophil % 56.4 % (47-70); Platelet Count 423 K/mm3 (150-450); RBC Distribution Width CV 14.6 % (11.6-14.6); Red Blood Count 3.81 M/mm3 (4.6-6.2); White Blood Count 7.7 K/mm3 (4.4-11.0)
[2020-02-07 18:00] LABS: Ferritin 88 ng/mL (26-388); Iron 55 ug/dL (65-175); Iron Binding Capacity,Total 240 ug/dL (250-450); PERCENT IRON SATURATION 22.9 % (15.0-55.0)
== END ==
PROVIDERS: PCP Family Medicine; Visit Provider Family Medicine
DX: N18.3 Chronic kidney disease, stage 3 (moderate) (principal); D50.9 Iron deficiency anemia, unspecified
CPT/HCPCS: 36415; 82728; 83540; 83550; 85025

== ENCOUNTER → 2020-04-03 10:51 | Outpatient (CLI) | payer OTHER, SELFPAY ==
[2020-04-03 12:43] LABS: Absolute Lymphocyte Count 1.52 X10^3/uL (0.83-4.51); Absolute Neutrophil Count 4.4 X10^3/uL (2.0-7.7); Basophil# 0.11 X10^3/uL; Basophil% 1.5 % (0-1); Eosinophil# 0.62 X10^3/uL; Eosinophils% 8.6 % (0-5); Hematocrit 35.4 % (40-54); Hemoglobin 11.2 g/dL (13.0-16.5); Lymphocyte # 1.52 X10^3/ul (4.0); Lymphocyte % 21.1 % (19-41); Mean Corp Hgb Conc 31.6 g/dL (32-36); Mean Corpuscular Hgb 27.9 pg (27.0-32.0); Mean Corpuscular Volume 88.3 fL (80-94); Mean Platelet Vol. 9.3 fl (6.2-12.0); Monocyte# 0.55 X10^3/uL; Monocyte% 7.6 % (0-10); NRBC Flagged by Analyzer 0 % (0-5); Neutrophil # 4.39 X10^3/uL (2.7-7.7); Neutrophil % 60.8 % (47-70); Platelet Count 572 K/mm3 (150-450); RBC Distribution Width CV 15.1 % (11.6-14.6); Red Blood Count 4.01 M/mm3 (4.6-6.2); White Blood Count 7.2 K/mm3 (4.4-11.0)
[2020-04-03 13:11] LABS: Vitamin B12 496 pg/mL (211-911); Vitamin D,25 Hydroxy 39.1 ng/mL
[2020-04-03 13:30] LABS: Protein:Creat Ratio 148 mg/g CRE (0-200)
[2020-04-03 13:35] LABS: ALB/GLOB Ratio 0.7 RATIO (0.9-2.4); AST(SGOT) 24 U/L (15-37); Alanine Aminotransfer ALT/SGPT 20 U/L (16-61); Albumin, Serum 3.3 g/dL (3.2-5.0); Alkaline Phosphatase 95 U/L (45-117); Anion Gap 8 (5-15); BUN 16 mg/dL (7-18); Calcium,Total 8.9 mg/dL (8.5-10.1); Chloride 103 mmol/L (98-107); Creatinine, Serum 1.14 mg/dL (0.70-1.30); EST Glomerular Filtration Rate 68 mL/min (>60); Est Glom Filt Rate - Afr Amer 82 mL/min (>60); Ferritin 105 ng/mL (26-388); Glucose 80 mg/dL (74-106); Iron 59 ug/dL (65-175); Iron Binding Capacity,Total 311 ug/dL (250-450); Potassium 3.8 mmol/L (3.5-5.1); Protein, Total 8.3 g/dL (6.4-8.2); Sodium Level 137 mmol/L (136-145); T4 Free Direct 0.79 ng/dL (0.76-1.46)
== END ==
PROVIDERS: PCP Family Medicine; Referring Provider Family Medicine; Visit Provider Family Medicine
DX: E03.9 Hypothyroidism, unspecified (principal); N18.3 Chronic kidney disease, stage 3 (moderate); E55.9 Vitamin D deficiency, unspecified; D64.9 Anemia, unspecified
CPT/HCPCS: 36415; 80053; 82306; 82570; 82607; 82728; 82746; 83540; 83550; 84156; 84439; 84443; 85025

== ENCOUNTER 2020-05-12 10:42 | Emergency (ER) | payer OTHER, SELFPAY ==
[2020-05-12 10:43] VITALS: BP 174/97; PULSE 78; RESP 20; TEMP 37.1; O2SAT 96; BMI 28.0
--- NOTE | 2020-05-12 10:48 | ED.DCSUM_ITS ---
History of Present Illness Chief Complaint: Syncope Informant: Patient, Account Service Representative Narrative: Patient has been sick for over 1 week with [id number] illness as has his . He notes cough sore throat some mild shortness of breath (that is not different than normal) and fever. Home health came to swab him. She swabbed his nasopharyngeal space and he became diaphoretic and felt very hot. He began to get pale and eventually had a syncopal episode. By time EMS got there he was ANO x3. He was recovering and in route to the hospital states he feels pretty good and back to his baseline. He denies any known heart conditions. At no point did he experience chest pain, palpitations, or worsening shortness of breath. No loss of bowel or bladder control. Past Medical History - Allergies and Home Meds Allergies/Adverse Reactions: Allergies No Known Allergies Allergy (Verified 01/26/19 17:55) Primary Care Physician: Fabio Packer MD [Primary Care Provider] - Prior records reviewed: Yes Surgical History: noncontributory Lives: Spouse/ Significant Other Smoking Status: Former smoker Drugs: None Review of Systems General: Reports: Chills, Fever, Malaise. Denies: Sweats Eyes: Denies: Visual changes - bilaterally, Diplopia ENT: Reports: Rhinorrhea, Sore throat Cardiovascular: Denies: Chest pain, Palpitations Respiratory: Reports: Dyspnea, Cough. Denies: Dyspnea on exertion Gastrointestinal: Denies: Abdominal pain, Nausea, Vomiting, Diarrhea, Melena, Hematochezia Genitourinary: Denies: Dysuria, Hematuria, Frequency Musculoskeletal: Reports: Myalgias. Denies: Back pain, Extremity Pain Skin: Denies: Rash, Wounds Neurological: Reports: Headache. Denies: Weakness, Numbness Physical Exam Vital Signs/Narrative: Vital Signs Temp Pulse Resp BP Pulse Ox 05/12/20 10:43 98.8 F 78 20 H 174/97 H 96 Inital Vital Signs reviewed: Yes General: Well nourished, Well developed, No Acute Distress Head: Normocephalic, Atraumatic Eyes: Perrl, EOMI ENT: Moist mucous membranes, No rhinorrhea Neck: Supple, Nontender Cardiovascular: Regular rate, Regular rhythm, No murmurs Respiratory: No distress, CTA bilaterally, Chest nontender Abdomen: Soft, Nontender, Nondistended, Normal bowel sounds Back: Nontender, Normal Inspection Extremities: Nontender, No edema Skin: Normal color, No rash Neurological: Alert, Oriented x3, Cranial nerves II-XII grossly intact, Normal Strength, Normal Sensation Psychological: Normal affect, Normal Mood Diagnostic/Tx/Re-eval Clinical Impression(s) from Imaging Studies Chest X-Ray 05/12/20 10:48 IMPRESSION: No acute abnormality is seen. Electronically Signed: Errol Mckeon, at 11:43 EDT , Service support , Laboratory Last Values WBC 7.5 K/mm3 (4.4-11.0) 05/12/20 11:30 RBC 4.35 M/mm3 (4.6-6.2) L 05/12/20 11:30 Hgb 12.3 g/dL (13.0-16.5) L 05/12/20 11:30 Hct 38.4 % (40-54) L 05/12/20 11:30 MCV 88.3 fL (80-94) 05/12/20 11:30 MCH 28.3 pg (27.0-32.0) 05/12/20 11:30 MCHC 32.0 g/dL (32-36) 05/12/20 11:30 RDW Std Deviation 51.3 fl (35.1-43.9) H 05/12/20 11:30 RDW Coeff of Marychuy 15.6 % (11.6-14.6) H 05/12/20 11:30 Plt Count 450 K/mm3 (150-450) 05/12/20 11:30 MPV 9.2 fl (6.2-12.0) 05/12/20 11:30 Immature Gran % (Auto) 1.100 % (0.0-0.9) H 05/12/20 11:30 Neut % (Auto) 74.4 % (47-70) H 05/12/20 11:30 Lymph % (Auto) 14.8 % (19-41) L 05/12/20 11:30 [place] % (Auto) 7.4 % (0-10) 05/12/20 11:30 Eos % (Auto) 1.9 % (0-5) 05/12/20 11:30 Baso % (Auto) 0.4 % (0-1) 05/12/20 11:30 Absolute Neuts (auto) 5.6 X10^3/uL (2.0-7.7) 05/12/20 11:30 Absolute Lymphs (auto) 1.11 X10^3/uL (0.83-4.51) 05/12/20 11:30 Nucleated RBC % 0 % (0-5) 05/12/20 11:30 Sodium 134 mmol/L (136-145) L 05/12/20 11:30 Potassium 3.7 mmol/L (3.5-5.1) 05/12/20 11:30 Chloride 101 mmol/L (98-107) 05/12/20 11:30 Carbon Dioxide 25.0 mmol/L (21.0-32.0) 05/12/20 11:30 Anion Gap 8 (5-15) 05/12/20 11:30 BUN 15 mg/dL (7-18) 05/12/20 11:30 Creatinine 1.32 mg/dL (0.70-1.30) H 05/12/20 11:30 Estim Creat Clear Calc 50.08 ml/min 05/12/20 11:30 Est GFR (MDRD) Af Amer 69 mL/min (>60) 05/12/20 11:30 Est GFR (MDRD) Non-Af 57 mL/min (>60) L 05/12/20 11:30 BUN/Creatinine Ratio 11.4 RATIO (-20) 05/12/20 11:30 Glucose 89 mg/dL (74-106) 05/12/20 11:30 Calcium 8.8 mg/dL (8.5-10.1) 05/12/20 11:30 Troponin I < 0.015 ng/mL (<0.045) 05/12/20 11:30 - EKG Initial EKG Interpretation: Sinus Rhythm, RBBB - EKG demonstrates a normal sinus rhythm at a rate of 77 with a right bundle branch block. No ectopy noted. - Medical Decision Making Patient has had no events on the monitor. His work-up is negative. This is most likely a vasovagal event brought in by the noxious stimuli of nasal swab. Believe he is safe for discharge. ED Disposition - Plan for ED Patient: Disposition: Home or Assisted Living Diagnosis: Vasovagal syncope, Suspected COVID-19 virus infection Instructions: ED VAGAL SYNCOPE Referrals: Fabio Packer MD [Primary Care Provider] - As Needed
--- NOTE | 2020-05-12 10:48 | EKG12_ITS ---
Test Reason : Blood Pressure : / mmHG Vent. Rate : 077 BPM Atrial Rate : 077 BPM P-R Int : 174 ms QRS Dur : 130 ms QT Int : 418 ms P-R-T Axes : 049 -05 027 degrees QTc Int : 473 ms Normal sinus rhythm Right bundle branch block Abnormal ECG Confirmed by FATIMAH DAVIS, CELIA ([id number]), editorial specialist LUIS LECHUGA ([id number]) on 05/13/2020 8:24:34 AM Referred By: GABINO Confirmed By:CELIA SHERIDAN MD
--- NOTE | 2020-05-12 10:48 | RAD_ITS ---
STUDY: X-RAY CHEST REASON FOR EXAM: Male, 70 years old. SYNCOPE TECHNIQUE: Single AP portable view of the chest. COMPARISON: Comparison is made with prior study dated 07/06/2016. FINDINGS: EKG electrodes are seen. The lungs are clear and expanded. There is no demonstrated pleural abnormality. Normal size heart. Normal mediastinum and marco antonio. Normal visualized pulmonary arteries. There is atherosclerotic tortuosity of the aortic arch and descending thoracic aorta. There are diffuse degenerative changes of the visualized thoracic spine. There is evidence of screw and plate fixation of the left sixth ninth and 10th ribs anterolaterally. There is no demonstrated abnormality of the visualized soft tissue structures of the upper abdomen. RAD/Chest 1 View (Portable) IMPRESSION: No acute abnormality is seen. Electronically Signed: Errol Mckeon, at 11:43 EDT , Service support ,
[2020-05-12 11:40] LABS: Absolute Lymphocyte Count 1.11 X10^3/uL (0.83-4.51); Absolute Neutrophil Count 5.6 X10^3/uL (2.0-7.7); Basophil# 0.03 X10^3/uL; Basophil% 0.4 % (0-1); Eosinophil# 0.14 X10^3/uL; Eosinophils% 1.9 % (0-5); Hematocrit 38.4 % (40-54); Hemoglobin 12.3 g/dL (13.0-16.5); Lymphocyte # 1.11 X10^3/ul (4.0); Lymphocyte % 14.8 % (19-41); Mean Corpuscular Hgb 28.3 pg (27.0-32.0); Mean Corpuscular Volume 88.3 fL (80-94); Mean Platelet Vol. 9.2 fl (6.2-12.0); Monocyte# 0.55 X10^3/uL; Monocyte% 7.4 % (0-10); NRBC Flagged by Analyzer 0 % (0-5); Neutrophil # 5.57 X10^3/uL (2.7-7.7); Neutrophil % 74.4 % (47-70); Platelet Count 450 K/mm3 (150-450); RBC Distribution Width CV 15.6 % (11.6-14.6); RBC Distribution Width SD 51.3 fl (35.1-43.9); Red Blood Count 4.35 M/mm3 (4.6-6.2); White Blood Count 7.5 K/mm3 (4.4-11.0)
[2020-05-12 11:51] LABS: Anion Gap 8 (5-15); BUN 15 mg/dL (7-18); BUN/Creat Ratio 11.4 RATIO (10-20); Calcium,Total 8.8 mg/dL (8.5-10.1); Chloride 101 mmol/L (98-107); Creatinine, Serum 1.32 mg/dL (0.70-1.30); EST Glomerular Filtration Rate 57 mL/min (>60); Est Glom Filt Rate - Afr Amer 69 mL/min (>60); Estimated Creatinine Clearance 50.08 ml/min; Glucose 89 mg/dL (74-106); Potassium 3.7 mmol/L (3.5-5.1); Sodium Level 134 mmol/L (136-145)
[2020-05-12 12:03] VITALS: BP 161/103; BP 163/97; PULSE 79; PULSE 83; RESP 17; RESP 19; TEMP 36.3; O2SAT 100; O2SAT 98
[2020-05-12 12:31] VITALS: BP 163/94; PULSE 78; RESP 19; O2SAT 97
== END 2020-05-12 12:39 | disposition home or self-care (01) ==
PROVIDERS: Emergency Provider Emergency Medicine; PCP Family Medicine
DX: R55 Syncope and collapse (principal); R05 Cough; R51.9 Headache, unspecified; J02.9 Acute pharyngitis, unspecified; J34.89 Other specified disorders of nose and nasal sinuses; R68.83 Chills (without fever); R06.00 Dyspnea, unspecified; Z20.828 Contact with and (suspected) exposure to other viral communicable diseases; I45.10 Unspecified right bundle-branch block; Z87.891 Personal history of nicotine dependence
CPT/HCPCS: 71045; 80048; 84484; 85025; 93005; 99285; A4216

== ENCOUNTER → 2020-10-02 10:16 | Outpatient (CLI) | payer OTHER, SELFPAY ==
[2020-10-02 10:25] LABS: Bacteria 0 SEEN /hpf (None Seen); Mucous, Urine 0 SEEN /hpf (<or=2+); Red Blood Cells-Urine 0 SEEN /hpf (0-5); Squamous Epithelial Cells - UA 0 SEEN /hpf (0-5); White Blood Cells 0 SEEN /hpf (0-5)
[2020-10-02 12:09] LABS: Absolute Lymphocyte Count 1.74 X10^3/uL (0.83-4.51); Absolute Neutrophil Count 4.2 X10^3/uL (2.0-7.7); Basophil# 0.13 X10^3/uL; Basophil% 1.8 % (0-1); Eosinophil# 0.45 X10^3/uL; Eosinophils% 6.3 % (0-5); Hematocrit 39.8 % (40-54); Hemoglobin 12.8 g/dL (13.0-16.5); Lymphocyte # 1.74 X10^3/ul (4.0); Lymphocyte % 24.5 % (19-41); Mean Corp Hgb Conc 32.2 g/dL (32-36); Mean Corpuscular Volume 93.2 fL (80-94); Mean Platelet Vol. 9.2 fl (6.2-12.0); Monocyte# 0.52 X10^3/uL; Monocyte% 7.3 % (0-10); NRBC Flagged by Analyzer 0 % (0-5); Neutrophil # 4.24 X10^3/uL (2.7-7.7); Neutrophil % 59.8 % (47-70); Platelet Count 491 K/mm3 (150-450); RBC Distribution Width CV 13.8 % (11.6-14.6); RBC Distribution Width SD 46.9 fl (35.1-43.9); Red Blood Count 4.27 M/mm3 (4.6-6.2); White Blood Count 7.1 K/mm3 (4.4-11.0)
[2020-10-02 12:15] LABS: Protein, Urine (Random) 23.1 mg/dL (<11.9); Protein:Creat Ratio 242 mg/g CRE (0-200)
[2020-10-02 12:21] LABS: PTHIN 25.6 pg/mL (18.4-80.1)
[2020-10-02 12:24] LABS: Vitamin B12 463 pg/mL (211-911); Vitamin D,25 Hydroxy 25.6 ng/mL
[2020-10-02 12:25] LABS: Color, Urine Yellow (Yellow); Glucose, Dipstick Normal (Normal); Ketone-Dipstick Negative (Negative); Leukocyte Esterase-Dipstick Negative /ul (Negative); Nitrite-Dipstick Negative (Negative); Occult Blood-Urine Negative /ul (Negative); Protein-Dipstick 15 mg/dl (Negative); Urine Bilirubin Dipstick Negative (Negative); Urine Clarity Clear (Clear); Urine Urobilinogen Normal (Normal)
[2020-10-02 12:48] LABS: ALB/GLOB Ratio 0.7 RATIO (0.9-2.4); AST(SGOT) 25 U/L (15-37); Alanine Aminotransfer ALT/SGPT 23 U/L (16-61); Albumin, Serum 3.7 g/dL (3.2-5.0); Alkaline Phosphatase 92 U/L (45-117); Anion Gap 4 (5-15); BUN 13 mg/dL (7-18); BUN/Creat Ratio 10.7 RATIO (10-20); Calcium,Total 9.7 mg/dL (8.5-10.1); Chloride 103 mmol/L (98-107); Creatinine, Serum 1.22 mg/dL (0.70-1.30); EST Glomerular Filtration Rate 63 mL/min (>60); Est Glom Filt Rate - Afr Amer 76 mL/min (>60); Ferritin 84 ng/mL (26-388); Glucose 101 mg/dL (74-106); Iron 78 ug/dL (65-175); Iron Binding Capacity,Total 262 ug/dL (250-450); PSA,Total - Annual Screen 0.92 ng/mL (0.00-4.00); Potassium 3.7 mmol/L (3.5-5.1); Protein, Total 8.7 g/dL (6.4-8.2); Sodium Level 137 mmol/L (136-145); T4 Free Direct 0.81 ng/dL (0.76-1.46)
== END ==
PROVIDERS: PCP Family Medicine; Referring Provider Family Medicine; Visit Provider Family Medicine
DX: E03.9 Hypothyroidism, unspecified (principal); E55.9 Vitamin D deficiency, unspecified; N18.30 Chronic kidney disease, stage 3 unspecified; D64.9 Anemia, unspecified; Z12.5 Encounter for screening for malignant neoplasm of prostate
CPT/HCPCS: 80053; 81001; 82306; 82570; 82607; 82728; 82746; 83540; 83550; 83970; 84100; 84153; 84156; 84439; 84443; 85025; G0103

== ENCOUNTER 2021-09-03 09:59 | Outpatient (CLI) | payer OTHER, SELFPAY ==
[2021-09-03 10:08] LABS: Bacteria 0 SEEN /hpf (None Seen); Mucous, Urine 0 SEEN /hpf (<or=2+); Red Blood Cells-Urine 0 SEEN /hpf (0-5); Squamous Epithelial Cells - UA 0 SEEN /hpf (0-5); White Blood Cells 0 SEEN /hpf (0-5)
[2021-09-03 12:05] LABS: Color, Urine Yellow (Yellow); Glucose, Dipstick Normal (Normal); Ketone-Dipstick Negative (Negative); Leukocyte Esterase-Dipstick Negative /ul (Negative); Nitrite-Dipstick Negative (Negative); Occult Blood-Urine Negative /ul (Negative); Protein-Dipstick 15 mg/dl (Negative); Urine Bilirubin Dipstick Negative (Negative); Urine Clarity Clear (Clear); Urine Urobilinogen Normal (Normal)
[2021-09-03 12:27] LABS: Protein, Urine (Random) 22.7 mg/dL (<11.9); Protein:Creat Ratio 151 mg/g CRE (0-200)
[2021-09-03 12:59] LABS: ALB/GLOB Ratio 0.7 RATIO (0.9-2.4); AST(SGOT) 37 U/L (15-37); Alanine Aminotransfer ALT/SGPT 31 U/L (16-61); Albumin, Serum 3.5 g/dL (3.2-5.0); Alkaline Phosphatase 85 U/L (45-117); Anion Gap 5 (5-15); BUN 13 mg/dL (7-18); BUN/Creat Ratio 10.2 RATIO (10-20); Chloride 104 mmol/L (98-107); Creatinine, Serum 1.28 mg/dL (0.70-1.30); EST Glomerular Filtration Rate 59 mL/min (>60); Est Glom Filt Rate - Afr Amer 72 mL/min (>60); Ferritin 67 ng/mL (26-388); Glucose 86 mg/dL (74-106); Iron 88 ug/dL (65-175); Iron Binding Capacity,Total 279 ug/dL (250-450); Potassium 3.8 mmol/L (3.5-5.1); Protein, Total 8.5 g/dL (6.4-8.2); Sodium Level 136 mmol/L (136-145); T4 Free Direct 0.28 ng/dL (0.76-1.46)
== END 2021-09-03 23:59 | disposition home or self-care (01) ==
PROVIDERS: PCP Family Medicine; Referring Provider Family Medicine; Visit Provider Family Medicine
DX: Z12.5 Encounter for screening for malignant neoplasm of prostate (principal); N18.30 Chronic kidney disease, stage 3 unspecified; D50.9 Iron deficiency anemia, unspecified; E03.9 Hypothyroidism, unspecified; E55.9 Vitamin D deficiency, unspecified
CPT/HCPCS: 36415; 80053; 81001; 82306; 82570; 82728; 83540; 83550; 84156; 84439; 84443

== ENCOUNTER → 2021-12-03 | Outpatient (CLI) | payer OTHER, SELFPAY ==
[2021-12-03 15:19] LABS: Absolute Lymphocyte Count 2.05 X10^3/uL (0.83-4.51); Absolute Neutrophil Count 4.6 X10^3/uL (2.0-7.7); Basophil# 0.11 X10^3/uL; Basophil% 1.4 % (0-1); Eosinophil# 0.51 X10^3/uL; Eosinophils% 6.5 % (0-5); Hematocrit 38.2 % (40-54); Hemoglobin 12.4 g/dL (13.0-16.5); Lymphocyte # 2.05 X10^3/ul (0.83-4.51); Lymphocyte % 26.1 % (19-41); Mean Corp Hgb Conc 32.5 g/dL (32-36); Mean Corpuscular Volume 92.3 fL (80-94); Mean Platelet Vol. 9.6 fl (6.2-12.0); Monocyte% 7.7 % (0-10); NRBC Flagged by Analyzer 0 % (0-5); Neutrophil # 4.56 X10^3/uL (2.7-7.7); Neutrophil % 58.2 % (47-70); Platelet Count 419 K/mm3 (150-450); RBC Distribution Width CV 13.3 % (11.6-14.6); RBC Distribution Width SD 45.5 fl (35.1-43.9); Red Blood Count 4.14 M/mm3 (4.6-6.2); White Blood Count 7.8 K/mm3 (4.4-11.0)
[2021-12-03 15:47] LABS: ALB/GLOB Ratio 0.7 RATIO (0.9-2.4); AST(SGOT) 25 U/L (15-37); Alanine Aminotransfer ALT/SGPT 27 U/L (16-61); Albumin, Serum 3.5 g/dL (3.2-5.0); Alkaline Phosphatase 81 U/L (45-117); Anion Gap 6 (5-15); BUN 16 mg/dL (7-18); Calcium,Total 9.3 mg/dL (8.5-10.1); Chloride 105 mmol/L (98-107); Creatinine, Serum 1.14 mg/dL (0.70-1.30); EST Glomerular Filtration Rate 68 mL/min (>60); Est Glom Filt Rate - Afr Amer 82 mL/min (>60); Ferritin 71 ng/mL (26-388); Globulin 4.8 g/dL (2.2-4.2); Glucose 86 mg/dL (74-106); Iron 64 ug/dL (65-175); Iron Binding Capacity,Total 263 ug/dL (250-450); PERCENT IRON SATURATION 24.3 % (15.0-55.0); Potassium 3.9 mmol/L (3.5-5.1); Protein, Total 8.3 g/dL (6.4-8.2); Sodium Level 137 mmol/L (136-145); T4 Free Direct 1.19 ng/dL (0.76-1.46); Thyroid Stim Hormone (TSH) 2.06 uIU/mL (0.358-3.74)
[2021-12-03 16:20] LABS: Vitamin D,25 Hydroxy 67.4 ng/mL
== END | disposition home or self-care (01) ==
LOC: MFPLAB 12:07
PROVIDERS: PCP Family Medicine; Visit Provider Family Medicine
DX: E03.9 Hypothyroidism, unspecified (principal); E55.9 Vitamin D deficiency, unspecified; D50.9 Iron deficiency anemia, unspecified
CPT/HCPCS: 36415; 80053; 82306; 82728; 83540; 83550; 84439; 84443; 85025

== ENCOUNTER 2022-06-10 10:52 | Outpatient (CLI) | payer OTHER, SELFPAY ==
[2022-06-10 12:20] LABS: Absolute Lymphocyte Count 2.03 X10^3/uL (0.83-4.51); Basophil% 1.4 % (0-1); Eosinophil# 0.59 X10^3/uL; Hematocrit 42.4 % (40-54); Hemoglobin 13.8 g/dL (13.0-16.5); Lymphocyte # 2.03 X10^3/ul (0.83-4.51); Lymphocyte % 27.5 % (19-41); Mean Corp Hgb Conc 32.5 g/dL (32-36); Mean Corpuscular Hgb 30.1 pg (27.0-32.0); Mean Corpuscular Volume 92.4 fL (80-94); Mean Platelet Vol. 9.2 fl (6.2-12.0); Monocyte# 0.65 X10^3/uL; Monocyte% 8.8 % (0-10); NRBC Flagged by Analyzer 0 % (0-5); Platelet Count 438 K/mm3 (150-450); RBC Distribution Width CV 14.2 % (11.6-14.6); Red Blood Count 4.59 M/mm3 (4.6-6.2); White Blood Count 7.4 K/mm3 (4.4-11.0)
[2022-06-10 12:37] LABS: PTHIN 57.7 pg/mL (18.4-80.1)
[2022-06-10 12:38] LABS: Vitamin B12 451 pg/mL (211-911); Vitamin D,25 Hydroxy 33.8 ng/mL
[2022-06-10 12:52] LABS: ALB/GLOB Ratio 0.7 RATIO (0.9-2.4); AST(SGOT) 18 U/L (15-37); Alanine Aminotransfer ALT/SGPT 21 U/L (16-61); Albumin, Serum 3.5 g/dL (3.2-5.0); Alkaline Phosphatase 83 U/L (45-117); Anion Gap 6 (5-15); BUN 17 mg/dL (7-18); BUN/Creat Ratio 13.7 RATIO (10-20); Calcium,Total 9.3 mg/dL (8.5-10.1); Chloride 106 mmol/L (98-107); Creatinine, Serum 1.24 mg/dL (0.70-1.30); EST Glomerular Filtration Rate 61 mL/min (>60); Est Glom Filt Rate - Afr Amer 74 mL/min (>60); Ferritin 70 ng/mL (26-388); Globulin 4.9 g/dL (2.2-4.2); Glucose 98 mg/dL (74-106); Iron 112 ug/dL (65-175); Iron Binding Capacity,Total 268 ug/dL (250-450); Phosphorus 2.7 mg/dL (2.5-4.9); Potassium 4.1 mmol/L (3.5-5.1); Protein, Total 8.4 g/dL (6.4-8.2); Sodium Level 138 mmol/L (136-145); T4 Free Direct 1.01 ng/dL (0.76-1.46)
== END 2022-06-10 23:59 | disposition home or self-care (01) ==
LOC: MFPLAB 10:56
PROVIDERS: PCP Family Medicine; Referring Provider Family Medicine; Visit Provider Family Medicine
DX: N18.30 Chronic kidney disease, stage 3 unspecified (principal); D50.9 Iron deficiency anemia, unspecified; E03.9 Hypothyroidism, unspecified; E55.9 Vitamin D deficiency, unspecified
CPT/HCPCS: 36415; 80053; 82306; 82607; 82728; 82746; 83540; 83550; 83970; 84100; 84439; 84443; 85025

== ENCOUNTER → 2023-03-31 | Outpatient (CLI) | payer OTHER, SELFPAY ==
[2023-03-31 10:11] LABS: Bacteria 0 SEEN /hpf (None Seen); Mucous, Urine 0 SEEN /hpf (<or=2+); White Blood Cells 0 SEEN /hpf (0-5)
[2023-03-31 12:32] LABS: Color, Urine Yellow (Yellow); Glucose, Dipstick Normal (Normal); Ketone-Dipstick Negative (Negative); Leukocyte Esterase-Dipstick 25 /ul (Negative); Nitrite-Dipstick Negative (Negative); Occult Blood-Urine Negative /ul (Negative); Protein-Dipstick Negative (Negative); Urine Bilirubin Dipstick Negative (Negative); Urine Clarity Clear (Clear); Urine Urobilinogen Normal (Normal)
[2023-03-31 12:34] LABS: Absolute Lymphocyte Count 2.43 X10^3/uL (0.83-4.51); Absolute Neutrophil Count 3.9 X10^3/uL (2.0-7.7); Basophil# 0.11 X10^3/uL; Basophil% 1.4 % (0-1); Eosinophil# 0.73 X10^3/uL; Eosinophils% 9.3 % (0-5); Lymphocyte # 2.43 X10^3/ul (0.83-4.51); Lymphocyte % 30.8 % (19-41); Mean Corp Hgb Conc 31.7 g/dL (32-36); Mean Corpuscular Hgb 29.3 pg (27.0-32.0); Mean Corpuscular Volume 92.6 fL (80-94); Mean Platelet Vol. 9.7 fl (6.2-12.0); Monocyte# 0.67 X10^3/uL; Monocyte% 8.5 % (0-10); NRBC Flagged by Analyzer 0 % (0-5); Neutrophil # 3.94 X10^3/uL (2.7-7.7); Neutrophil % 49.9 % (47-70); Platelet Count 443 K/mm3 (150-450); RBC Distribution Width CV 13.8 % (11.6-14.6); RBC Distribution Width SD 46.9 fl (35.1-43.9); Red Blood Count 4.43 M/mm3 (4.6-6.2); White Blood Count 7.9 K/mm3 (4.4-11.0)
[2023-03-31 12:39] LABS: Red Blood Cells-Urine 0-5 SEEN /hpf (0-5)
[2023-03-31 12:40] LABS: Squamous Epithelial Cells - UA 0-5 SEEN /hpf (0-5)
[2023-03-31 12:45] LABS: PTHIN 36.4 pg/mL (18.4-80.1)
[2023-03-31 12:46] LABS: Protein, Urine (Random) < 6.0 mg/dL (<11.9); Protein:Creat Ratio 104 mg/g CRE (0-200)
[2023-03-31 12:53] LABS: ALB/GLOB Ratio 0.7 RATIO (0.9-2.4); AST(SGOT) 21 U/L (15-37); Alanine Aminotransfer ALT/SGPT 27 U/L (16-61); Albumin, Serum 3.3 g/dL (3.2-5.0); Alkaline Phosphatase 84 U/L (45-117); Anion Gap 5 (5-15); BUN 14 mg/dL (7-18); Calcium,Total 9.2 mg/dL (8.5-10.1); Chloride 107 mmol/L (98-107); Creatinine, Serum 1.27 mg/dL (0.70-1.30); EST Glomerular Filtration Rate 59 mL/min (>60); Est Glom Filt Rate - Afr Amer 72 mL/min (>60); Globulin 4.5 g/dL (2.2-4.2); Glucose 89 mg/dL (74-106); Phosphorus 2.5 mg/dL (2.5-4.9); Protein, Total 7.8 g/dL (6.4-8.2); Sodium Level 139 mmol/L (136-145); T4 Free Direct 1.44 ng/dL (0.76-1.46); Thyroid Stim Hormone (TSH) 0.82 uIU/mL (0.358-3.74); Vitamin D,25 Hydroxy 34.4 ng/mL
== END | disposition home or self-care (01) ==
LOC: MFPLAB 10:05
PROVIDERS: PCP Family Medicine; Visit Provider Family Medicine
DX: E55.9 Vitamin D deficiency, unspecified (principal); N18.30 Chronic kidney disease, stage 3 unspecified; E03.9 Hypothyroidism, unspecified
CPT/HCPCS: 36415; 80053; 81001; 82306; 82570; 83970; 84100; 84156; 84439; 84443; 85025

== ENCOUNTER 2023-09-09 23:16 | Emergency (ER) | payer OTHER, SELFPAY ==
--- NOTE | 2023-09-09 | RAD_ITS ---
EXAM: XR CHEST, 2 VIEWS CLINICAL INDICATION: cough TECHNIQUE: Frontal and lateral views of the chest. COMPARISON: Single view chest 05/12/2020 FINDINGS: LUNGS AND PLEURAL SPACES: Unremarkable. No consolidation or edema. No pneumothorax. No effusion. HEART: Unremarkable. Cardiac silhouette not enlarged. MEDIASTINUM: Central airways and mediastinal contour are unremarkable. BONES/JOINTS: Prior surgical changes of multiple left ribs. No acute fracture. SOFT TISSUES: Unremarkable. RAD/Chest PA and Lateral IMPRESSION: No acute findings in the chest. Electronically Signed: Chandra Hooper MD at 0:34 EST ,
[2023-09-09 23:17] VITALS: BP 186/88; PULSE 79; RESP 16; TEMP 36.4; O2SAT 94; BMI 29.2
--- NOTE | 2023-09-09 23:31 | CT_ITS ---
EXAM: CT HEAD WITHOUT INTRAVENOUS CONTRAST CLINICAL INDICATION: headache, syncope TECHNIQUE: Multiple axial images were obtained of the head without intravenous contrast. This CT exam was performed using one or more of the following dose reduction techniques: automated exposure control, adjustment of the mA and/or kV according to patient size, and/or use of iterative reconstruction technique. RADIATION DOSE: CTDIvol = 44.99 mGy, DLP = 829.85 mGy-cm COMPARISON: Head CT 07/06/2016 FINDINGS: BRAIN AND EXTRA-AXIAL SPACES: Unremarkable. No intra- or extra-axial hemorrhage. No evidence of acute infarct. No intracranial mass or mass effect. There is preservation of the abbott/white matter interface. Posterior fossa structures are unremarkable. Ventricles are appropriate for age. No hydrocephalus. Basal cisterns are patent. BONES/JOINTS: Unremarkable. No discrete lytic or blastic abnormalities. SINUSES: Bilateral maxillary sinus disease. MASTOID AIR CELLS: Unremarkable. Clear. ORBITS: Visualized globes, extraocular muscles, optic nerves and retrobulbar fat appear unremarkable. CT/Brain/Head without Contrast IMPRESSION: 1. Bilateral maxillary sinus disease. 2. No acute intracranial abnormalities. Electronically Signed: Chandra Hooper MD at 0:33 EST ,
--- NOTE | 2023-09-09 23:32 | EKG12_ITS ---
Test Reason : DYSRHYTHMIA Blood Pressure : / mmHG Vent. Rate : 074 BPM Atrial Rate : 074 BPM P-R Int : 184 ms QRS Dur : 148 ms QT Int : 422 ms P-R-T Axes : 054 -56 035 degrees QTc Int : 468 ms Normal sinus rhythm Right bundle branch block Left anterior fascicular block Bifascicular block Minimal voltage criteria for LVH, may be normal variant ( R in aVL ) Abnormal ECG Confirmed by Meliton Seo ([id number]), pictures editor LUIS LECHUGA ([id number]) on 09/12/2023 9:57:16 AM Referred By: RISHI Confirmed By:Meliton Seo
[2023-09-09] MEDS: 0.9% Normal Saline (1000mL) 1,000 ML 150 ML IV (23:47)
--- NOTE | 2023-09-09 23:52 | EX.ED.DYSGE1 ---
HPI History of Present Illness Chief Complaint: Syncope Informant: patient and spouse/S.O. Onset/Context/Timing Onset: Today Narrative Narrative: Patient presents after a syncopal episode at home. He reports feeling ill the past 2 days with sore throat, congestion, cough, and headache. He states he did not feel well after dinner tonight and went to bed. He was restless and got up to take some medication. He states he remembers standing at the sink trying to read the bottle but could not focus. states he tried to take the medicine but slumped forward over the sink. She was able to move a chair behind him and had him sit. She does report that he lost consciousness for at least 5 minutes. There is no seizure activity noted. Patient states he feels well now. He denies having chest pain, palpitations, or shortness of breath. [facility] Medical History Hypothyroid Home Medications nirmatrelvir 300 mg (150 mg x2)-ritonavir 100 mg tablet,dose pack (Paxlovid) See Rx Instructions PO .COMPLEX #30 tabs 09/10/23 [Rx Last Taken Unknown] Allergy/AdvReac Type Severity Reaction Status Date / Time No Known Allergies Allergy Verified 09/09/23 23:20 Social History Smoking Status: Never smoker ROS ROS ED Constitutional Constitutional ED: Denies chills or fever(s) Eyes Eyes: Denies change in vision or discharge from eye(s) ENT ENT ED: Reports sore throat; Denies discharge from eye(s) or rhinorrhea Cardiovascular Cardiovascular: Denies chest pain or palpitations Respiratory/Chest Respiratory/Chest: Denies cough or dyspnea Gastrointestinal Gastrointestinal: Reports other Details: Decreased p.o. intake ; Denies abdominal pain, nausea or vomiting Genitourinary Genitourinary ED: Denies dysuria Musculoskeletal Musculoskeletal: Denies back pain or extremity pain Integumentary Denies Abrasions or rash Neurologic Neurologic: Reports headache(s) and weakness Psychiatric Psychiatric: Denies anxiety or depression Allergic/Immunologic Allergic/Immunologic ED: Denies lip swelling or urticaria EXAM Physical Exam Const Vital Signs: 09/09/23 23:17 09/09/23 23:21 09/10/23 01:16 Temperature 97.6 F L Temperature Source Temporal Pulse Rate 79 Pulse Rate [Lying] 84 Pulse Rate [Sitting (for 1 minute prior to obtaining)] 72 Pulse Rate [Standing (for 1 minute prior to obtaining)] 75 Respiratory Rate 16 Respiratory Effort Normal Non-Labored Respiratory Pattern Normal Blood Pressure 186/88 H Blood Pressure [Lying] 158/91 H Blood Pressure [Sitting (for 1 minute prior to obtaining)] 142/89 H Blood Pressure [Standing (for 1 minute prior to obtaining)] 174/93 H Blood Pressure Mean 120 Blood Pressure Mean [Lying] 113 Blood Pressure Mean [Sitting (for 1 minute prior to obtaining)] 106 Blood Pressure Mean [Standing (for 1 minute prior to obtaining)] 120 Pulse Ox 94 Oxygen Delivery Method Room Air 09/10/23 00:07 09/10/23 00:10 09/10/23 00:15 Temperature Temperature Source Pulse Rate 75 76 74 Pulse Rate [Lying] Pulse Rate [Sitting (for 1 minute prior to obtaining)] Pulse Rate [Standing (for 1 minute prior to obtaining)] Respiratory Rate 17 20 H 18 Respiratory Effort Respiratory Pattern Blood Pressure 153/88 H Blood Pressure [Lying] Blood Pressure [Sitting (for 1 minute prior to obtaining)] Blood Pressure [Standing (for 1 minute prior to obtaining)] Blood Pressure Mean 107 Blood Pressure Mean [Lying] Blood Pressure Mean [Sitting (for 1 minute prior to obtaining)] Blood Pressure Mean [Standing (for 1 minute prior to obtaining)] Pulse Ox 96 97 94 Oxygen Delivery Method 09/10/23 00:20 09/10/23 00:30 09/10/23 00:40 Temperature Temperature Source Pulse Rate 76 73 74 Pulse Rate [Lying] Pulse Rate [Sitting (for 1 minute prior to obtaining)] Pulse Rate [Standing (for 1 minute prior to obtaining)] Respiratory Rate 17 14 14 Respiratory Effort Respiratory Pattern Blood Pressure 142/89 H Blood Pressure [Lying] Blood Pressure [Sitting (for 1 minute prior to obtaining)] Blood Pressure [Standing (for 1 minute prior to obtaining)] Blood Pressure Mean 106 Blood Pressure Mean [Lying] Blood Pressure Mean [Sitting (for 1 minute prior to obtaining)] Blood Pressure Mean [Standing (for 1 minute prior to obtaining)] Pulse Ox 92 92 94 Oxygen Delivery Method 09/10/23 00:45 09/10/23 00:50 09/10/23 01:00 Temperature Temperature Source Pulse Rate 75 75 75 Pulse Rate [Lying] Pulse Rate [Sitting (for 1 minute prior to obtaining)] Pulse Rate [Standing (for 1 minute prior to obtaining)] Respiratory Rate 10 L 22 H 14 Respiratory Effort Respiratory Pattern Blood Pressure 142/89 H 158/91 H Blood Pressure [Lying] Blood Pressure [Sitting (for 1 minute prior to obtaining)] Blood Pressure [Standing (for 1 minute prior to obtaining)] Blood Pressure Mean 105 112 Blood Pressure Mean [Lying] Blood Pressure Mean [Sitting (for 1 minute prior to obtaining)] Blood Pressure Mean [Standing (for 1 minute prior to obtaining)] Pulse Ox 93 95 95 Oxygen Delivery Method Room Air 09/10/23 01:10 Temperature Temperature Source Pulse Rate 75 Pulse Rate [Lying] Pulse Rate [Sitting (for 1 minute prior to obtaining)] Pulse Rate [Standing (for 1 minute prior to obtaining)] Respiratory Rate 16 Respiratory Effort Respiratory Pattern Blood Pressure Blood Pressure [Lying] Blood Pressure [Sitting (for 1 minute prior to obtaining)] Blood Pressure [Standing (for 1 minute prior to obtaining)] Blood Pressure Mean Blood Pressure Mean [Lying] Blood Pressure Mean [Sitting (for 1 minute prior to obtaining)] Blood Pressure Mean [Standing (for 1 minute prior to obtaining)] Pulse Ox 94 Oxygen Delivery Method Positive well nourished and well developed General Appearance ED: well developed HEENT Reports moist mucous membranes Eyes EOMs intact bilaterally Chest Wall inspection of chest normal and palpation of chest normal Resp normal respiratory effort and clear to auscultation bilaterally Cardio regular rate and regular rhythm GI non-tender Auscultation: hypoactive bowel sounds Palpation: soft Extremity normal to inspection Neuro oriented x3 and no sensory deficits noted Motor Exam: strength 5/5 throughout Psych mental status grossly normal Skin no rashes or lesions noted MDM MDM MDM Narrative Medical decision making narrative: IV line established. Patient given IV fluids. Placed on surveillance monitor. EKG obtained to evaluate for cardiac arrhythmia/ischemia. Chest x-ray obtained to evaluate for acute lung pathology, cardiac size, or mediastinal abnormality. Labwork obtained to evaluate for leukocytosis, anemia, and electrolyte derangement. CT scan of the head obtained given his hypertension and headache with syncopal episode. Swab for COVID, influenza, and RSV also sent. History & Record Review Discussion w/independent historian: Patient and Significant other Lab Data Attestation: I reviewed the patient's lab results. Labs: Laboratory Results - last 24 hr 09/09/23 23:48 WBC 9.5 RBC 4.35 L Hgb 12.9 L Hct 39.4 L MCV 90.6 MCH 29.7 MCHC 32.7 RDW Std Deviation 46.8 H RDW Coeff of [place] 13.9 Plt Count 348 MPV 9.4 Immature Gran % (Auto) 0.300 Neut % (Auto) 63.5 Lymph % (Auto) 16.2 L [place] % (Auto) 10.9 H Eos % (Auto) 7.9 H Baso % (Auto) 1.2 H Absolute Neuts (auto) 6.0 Absolute Lymphs (auto) 1.54 Nucleated RBC % 0 Sodium 140 Potassium 3.9 Chloride 108 H Carbon Dioxide 26.0 Anion Gap 6 BUN 13 Creatinine 1.39 H Estim Creat Clear Calc 49.03 Est GFR (MDRD) Af Amer 65 Est GFR (MDRD) Non-Af 53 L BUN/Creatinine Ratio 9.4 L Glucose 114 H Calcium 9.0 Troponin I High Sens 9 Radiography Chest X-Ray - ED: 2 View, Read by ED Physician, Chronic Changes and No Infiltrates Diagnostic Testing: Clinical Impression(s) from Imaging Studies Chest X-Ray 09/09/23 00:00 IMPRESSION: No acute findings in the chest. Electronically Signed: Chandra Hooper MD at 0:34 EST Reading Location ID and State: [facility] / [place] Tel , Service support , Brain CT 09/09/23 23:31 IMPRESSION: 1. Bilateral maxillary sinus disease. 2. No acute intracranial abnormalities. Electronically Signed: Chandra Hooper MD at 0:33 EST , EKG Initial EKG: Attestation: I personally reviewed and interpreted this EKG as follows: Interpretation: Sinus Rhythm (Sinus rhythm at 74 bpm. Bifascicular block noted. Similar in appearance to prior study. No evidence of acute ischemia.) Treatment and Re-Evaluation :: CBC was normal white count 9.5 with normal neutrophil count. Hemoglobin is 12.9. Chemistry studies remarkable only for creatinine of 1.39. Patient has had waxing and waning creatinine values to this level in the past. Troponin is normal at 9. EKG is sinus rhythm with no evidence of ischemia. CT scan of the head reveals evidence of sinus disease with no acute intracranial abnormality. 2 view chest x-ray per my interpretation was chronic changes with no infiltrate. Radiology interpretation reviewed and agrees. Swab for COVID is positive. Influenza and RSV test is negative. Test results are discussed with patient and at bedside. After receiving 500 cc of IV fluids patient gets orthostatic vital signs and is ambulated. He feels well. We did discuss Paxlovid and he is interested in trying this. I will send it to the pharmacy for him. Otherwise he will continue supportive care. Discharge Plan Triage Chief Complaint: Syncope ED Provider: Collette Mcclure Dx/Rx/DC Orders Clinical Impression: COVID-19, Syncope Instructions: Coronavirus Disease 2019 (COVID-19): Overview, Coronavirus Disease 2019 (COVID-19): Caring for Yourself or Others, ED Fainting, Uncertain Cause Prescriptions: New Paxlovid 300 mg (150 mg x 2)-100 mg tablets,dose pack See Rx Instructions .ROUTE .COMPLEX Qty: 30 0RF Rx Instructions: take TWO 150 mg tablets of nirmatrelvir with ONE 100 mg tablet of ritonavir twice daily for 5 days Primary Care Provider: Fabio Packer Referrals: Fabio Packer MD [Primary Care Provider] - 1-2 Weeks Disposition Disposition: Home, Self Care
[2023-09-10] VITALS (12 sets, daily range): BP systolic 142–174; BP diastolic 87–93; PULSE 72–84; RESP 10–22; TEMP 36.4; O2SAT 92–97
[2023-09-10 00:14] LABS: Anion Gap 6 (5-15); BUN 13 mg/dL (7-18); BUN/Creat Ratio 9.4 RATIO (10-20); Chloride 108 mmol/L (98-107); Creatinine, Serum 1.39 mg/dL (0.70-1.30); EST Glomerular Filtration Rate 53 mL/min (>60); Est Glom Filt Rate - Afr Amer 65 mL/min (>60); Estimated Creatinine Clearance 49.03 ml/min; Glucose 114 mg/dL (74-106); Potassium 3.9 mmol/L (3.5-5.1); Sodium Level 140 mmol/L (136-145); Troponin-I HS (w/2H Reflex) 9 pg/mL (3.0-78.0)
[2023-09-10 00:16] LABS: Absolute Lymphocyte Count 1.54 X10^3/uL (0.83-4.51); Basophil# 0.11 X10^3/uL; Basophil% 1.2 % (0-1); Eosinophil# 0.75 X10^3/uL; Eosinophils% 7.9 % (0-5); Hematocrit 39.4 % (40-54); Hemoglobin 12.9 g/dL (13.0-16.5); Lymphocyte # 1.54 X10^3/ul (0.83-4.51); Lymphocyte % 16.2 % (19-41); Mean Corp Hgb Conc 32.7 g/dL (32-36); Mean Corpuscular Hgb 29.7 pg (27.0-32.0); Mean Corpuscular Volume 90.6 fL (80-94); Mean Platelet Vol. 9.4 fl (6.2-12.0); Monocyte# 1.04 X10^3/uL; Monocyte% 10.9 % (0-10); NRBC Flagged by Analyzer 0 % (0-5); Neutrophil # 6.04 X10^3/uL (2.7-7.7); Neutrophil % 63.5 % (47-70); Platelet Count 348 K/mm3 (150-450); RBC Distribution Width CV 13.9 % (11.6-14.6); RBC Distribution Width SD 46.8 fl (35.1-43.9); Red Blood Count 4.35 M/mm3 (4.6-6.2); White Blood Count 9.5 K/mm3 (4.4-11.0)
--- OUTSIDE RECORDS SUMMARY | 2023-09-10 00:56 | XMS RPT_ITS | CCD ---
Author Name Unknown Address [address] [place] [address] Organization [facility] Results Test Name Value Interpretation Reference Range Facil ity Procedures Date Procedure Procedure Detail Performing Clinician Start: 01-30-2019 Electrocardiogram Summary Purpose Family History No Family History Records Found Advance Directives No Advanced Directives Records Found Hospital Course Note [facility] Patient Name: SETH PLATA [address] Date of : [address] [place], [place] [address] Unit Number: [id number] Discharge Summary Patient Status: DIS Na Attending Doctor: Cee Bhatti DO Service Date: 01/31/19 1522 Discharge Summary Admit Date Admission Date Time: 01/30/19 0015 Anticipated Discharge Date 01/31/19 Final Dx/Problem List 1. Constipated 2. Dehydration 3. IVONNE (acute kidney injury) 4. Anemia 5. Syncope 6. Elevated AST (SGOT) Chief Complaint/HPI Constipation Reason for Admission Constipation with vasovagal syncope Hospital Course Seth Plata is a pleasant 69-year-old Buddhist male with no past medical history who tells me he has struggled with constipation for years but over the last month began experiencing severe constipation with no normal bowel movement over the last month, he tells me he presented to [facility] was given an enema had a CT of his abdomen which he states was normal except for the constipation. Has (more content not included)... Additional Source Comments (unrecognized sect ion and content) No Status Records Found INFORMATION SOURCE (unrecogn ized section and content) FOR RECORDS PERTAINING TO PATIENTS WHO ARE OR HAVE BEEN ENROLLED IN A CHEMICAL DEPENDENCY/SUBSTANCEABUSE PROGRAM, SOME INFORMATION MAY BE OMITTED. This clinical summary was aggregated from multiple sources. Caution should be exercised in using it in the provision of clinical care. This summary normalizes information from multiple sources, and as a consequence, information in this document may materially change the coding, format and clinical context of patient data. In addition, data may be omitted in some cases. CLINICAL DECISIONS SHOULD BE BASED ON THE PRIMARY CLINICAL RECORDS. [facility]. provides no warranty or guarantee of the accuracy or completeness of information in this document.
[2023-09-10 01:54] LABS: Reflex Troponin-HS? (from REC) Y
== END 2023-09-10 02:00 | disposition home or self-care (01) ==
PROVIDERS: Emergency Provider Emergency Medicine; PCP Family Medicine; Visit Provider Emergency Medicine
DX: U07.1 COVID-19 (principal); R55 Syncope and collapse; E03.9 Hypothyroidism, unspecified
CPT/HCPCS: 70450; 71046; 80048; 84484; 85025; 87631; 93005; 96360; 96361; 99285; J7030

== ENCOUNTER → 2024-04-19 | Outpatient (CLI) | payer OTHER, SELFPAY ==
[2024-04-19 12:28] LABS: Absolute Lymphocyte Count 2.29 X10^3/uL (0.83-4.51); Absolute Neutrophil Count 4.7 X10^3/uL (2.0-7.7); Basophil# 0.12 X10^3/uL; Basophil% 1.4 % (0-1); Eosinophil# 0.94 X10^3/uL; Eosinophils% 10.8 % (0-5); Hematocrit 41.1 % (40-54); Hemoglobin 13.2 g/dL (13.0-16.5); Lymphocyte # 2.29 X10^3/ul (0.83-4.51); Lymphocyte % 26.4 % (19-41); Mean Corp Hgb Conc 32.1 g/dL (32-36); Mean Corpuscular Hgb 29.8 pg (27.0-32.0); Mean Corpuscular Volume 92.8 fL (80-94); Mean Platelet Vol. 9.8 fl (6.2-12.0); Monocyte# 0.65 X10^3/uL; Monocyte% 7.5 % (0-10); NRBC Flagged by Analyzer 0 % (0-5); Neutrophil # 4.66 X10^3/uL (2.7-7.7); Neutrophil % 53.7 % (47-70); Platelet Count 414 K/mm3 (150-450); RBC Distribution Width CV 14.1 % (11.6-14.6); RBC Distribution Width SD 48.6 fl (35.1-43.9); Red Blood Count 4.43 M/mm3 (4.6-6.2); White Blood Count 8.7 K/mm3 (4.4-11.0)
[2024-04-19 13:06] LABS: Vitamin D,25 Hydroxy 38.6 ng/mL
[2024-04-19 13:13] LABS: ALB/GLOB Ratio 0.7 RATIO (0.9-2.4); AST(SGOT) 19 U/L (15-37); Alanine Aminotransfer ALT/SGPT 18 U/L (16-61); Albumin, Serum 3.5 g/dL (3.2-5.0); Alkaline Phosphatase 76 U/L (45-117); Anion Gap 5 (5-15); BUN 16 mg/dL (7-18); BUN/Creat Ratio 12.4 RATIO (10-20); Calcium,Total 9.7 mg/dL (8.5-10.1); Chloride 105 mmol/L (98-107); Creatinine, Serum 1.29 mg/dL (0.70-1.30); EST Glomerular Filtration Rate 58 mL/min (>60); Est Glom Filt Rate - Afr Amer 70 mL/min (>60); Globulin 4.8 g/dL (2.2-4.2); Glucose 92 mg/dL (74-106); PSA,Total - Annual Screen 0.88 ng/mL (0.00-4.00); Potassium 4.3 mmol/L (3.5-5.1); Protein, Total 8.3 g/dL (6.4-8.2); Sodium Level 136 mmol/L (136-145); T4 Free Direct 0.97 ng/dL (0.76-1.46)
[2024-04-23 13:08] LABS: PROEL- A/G Ratio 0.9 (0.7-1.7); PROEL- Albumin 3.6 g/dL (2.9-4.4); PROEL- Alpha-1 Globulin 0.3 g/dL (0.0-0.4); PROEL- Alpha-2 Globulin 0.8 g/dL (0.4-1.0); PROEL- Beta Globulin 1.3 g/dL (0.7-1.3); PROEL- Gamma Globulin 1.7 g/dL (0.4-1.8); PROEL- Globulin, Total 4.1 g/dL (2.2-3.9); PROEL- TOTAL PROTEIN 7.7 g/dL (6.0-8.5); PROEL-M-Spike Not Observed g/dL (Not Observed)
== END | disposition home or self-care (01) ==
LOC: MFPLAB 11:02
PROVIDERS: PCP Family Medicine; Visit Provider Family Medicine
DX: R77.8 Other specified abnormalities of plasma proteins (principal); E03.9 Hypothyroidism, unspecified; Z12.5 Encounter for screening for malignant neoplasm of prostate; E55.9 Vitamin D deficiency, unspecified
CPT/HCPCS: 36415; 80053; 82306; 84153; 84165; 84439; 84443; 85025; G0103

== ENCOUNTER → 2024-10-18 | Outpatient (CLI) | payer OTHER, SELFPAY ==
[2024-10-18 12:40] LABS: Absolute Lymphocyte Count 2.23 X10^3/uL (0.83-4.51); Absolute Neutrophil Count 3.9 X10^3/uL (2.0-7.7); Basophil# 0.14 X10^3/uL; Basophil% 1.8 % (0-1); Eosinophil# 0.79 X10^3/uL; Eosinophils% 10.3 % (0-5); Hematocrit 38.6 % (40-54); Hemoglobin 12.8 g/dL (13.0-16.5); Lymphocyte # 2.23 X10^3/ul (0.83-4.51); Mean Corp Hgb Conc 33.2 g/dL (32-36); Mean Corpuscular Hgb 29.3 pg (27.0-32.0); Mean Corpuscular Volume 88.3 fL (80-94); Mean Platelet Vol. 9.7 fl (6.2-12.0); Monocyte# 0.68 X10^3/uL; Monocyte% 8.8 % (0-10); NRBC Flagged by Analyzer 0 % (0-5); Neutrophil # 3.85 X10^3/uL (2.7-7.7); Platelet Count 397 K/mm3 (150-450); RBC Distribution Width CV 13.4 % (11.6-14.6); RBC Distribution Width SD 43.8 fl (35.1-43.9); Red Blood Count 4.37 M/mm3 (4.6-6.2); White Blood Count 7.7 K/mm3 (4.4-11.0)
[2024-10-18 13:15] LABS: AST(SGOT) 25 U/L (<=37); Alanine Aminotransfer ALT/SGPT 20 U/L (<=46); Albumin, Serum 3.9 g/dL (3.4-4.8); Alkaline Phosphatase 80 U/L (40-129); Anion Gap 10 (5-15); BUN 15 mg/dL (4-19); BUN/Creat Ratio 14.5 RATIO (10-20); Calcium,Total 9.4 mg/dL (7.6-11.0); Chloride 105 mmol/L (98-108); Creatinine, Serum 1.04 mg/dL (0.70-1.20); EST Glomerular Filtration Rate 76 (>60); Glucose 97 mg/dL (70-99); Potassium 4.1 mmol/L (3.3-5.1); Protein, Total 7.9 g/dL (5.9-8.4); Sodium Level 139 mmol/L (133-145); Total Bilirubin 0.62 mg/dL (0.00-1.30)
[2024-10-18 13:16] LABS: Thyroid Stim Hormone (TSH) 0.027 uIU/mL (0.300-4.200); Vitamin D,25 Hydroxy 27.2 ng/mL (30-100)
[2024-10-18 13:37] LABS: Protein, Urine (Random) 7.4 mg/dL (0.0-12.0); Protein:Creat Ratio 112 mg/g CRE (0-200)
[2024-10-23 12:58] LABS: Ferritin 125 ng/mL (37-417)
[2024-10-23 14:16] LABS: Iron 100 ug/dL (65-175); Iron Binding Capacity,Unsat 132 ug/dL (228-428)
[2024-10-23 15:17] LABS: Iron Binding Capacity,Total 232 ug/dL (250-450); PERCENT IRON SATURATION 43.1 % (9-55)
== END | disposition home or self-care (01) ==
LOC: MFPLAB 10:16
PROVIDERS: PCP Family Medicine; Referring Provider Family Medicine; Visit Provider Family Medicine
DX: E03.9 Hypothyroidism, unspecified (principal)
CPT/HCPCS: 36415; 80053; 82306; 82570; 82728; 83540; 83550; 84156; 84439; 84443; 85025

== ENCOUNTER 2024-12-23 08:35 | Emergency (ER) | payer OTHER, SELFPAY ==
[2024-12-23 08:35] VITALS: BP 206/119; PULSE 78; RESP 16; TEMP 36.7; O2SAT 99; BMI 27.1
--- NOTE | 2024-12-23 08:44 | CT_ITS ---
PROCEDURE: ABDOMEN/PELVIS W IV CONT ONLY 12/23/2024 REASON FOR EXAM: Abdominal pain after eating x several weeks. TECHNIQUE: Abdomen and pelvis CT with intravenous contrast. Coronal and Sagittal reconstruction series were provided. PATIENT PREPARATION: Per protocol ORAL CONTRAST TYPE: None. CONTRAST: Isovue 370 VOLUME: 100 mL One or more dose reduction techniques were used (e.g., Automated exposure control, adjustment of the mA and/or kV according to patient size, use of iterative reconstruction technique. RADIATION DOSE SUMMARY: CTDlvol: 14 mGy DLP: 710 mGycm COMPARISON: CT abdomen pelvis 01/26/2019. FINDINGS: Lung bases: Scattered calcified pulmonary nodules. Bibasilar atelectasis. Partially visualized plate fixation of the left lower posterior ribs. Liver: The liver is normal in size without suspicious hepatic mass. The major portal veins are patent. No biliary ductal dilation. Gallbladder: Small dependent stone within the gallbladder. No gallbladder wall thickening or pericholecystic fluid. Spleen: Normal size. Pancreas: Unremarkable. Adrenals: No adrenal mass. Kidneys: No hydronephrosis or nephrolithiasis. Bladder: Mildly distended and unremarkable. Reproductive Organs: Unremarkable. Bowel: The bowel loops are normal in caliber. No ascites or pneumoperitoneum. Normal appendix. Lymph nodes: No suspicious lymphadenopathy. Vasculature: Severe mixed calcific plaque of the aortoiliac vessels. Bones: Thoracolumbar spondylosis. CT/Abdomen/Pelvis W IV Cont ONLY IMPRESSION: No acute abdominopelvic finding. Reading Location: [id number]
--- NOTE | 2024-12-23 08:45 | ED.VIS.GI ---
HPI HPI - GI History of Present Illness Chief Complaint: Abd Pain Detail of Chief Complaint: Abdominal pain Informant: patient Narrative Narrative: Patient presents with abdominal pain that started 2 months ago. He has had pain off-and-on especially after he eats. Pain is brought on about 10 minutes after eating. He said decreased appetite. Feels weak. Last night after eating supper 10 minutes later developed abdominal pain that lasted throughout the night. He had no nausea or vomiting. Denies fever. He denies urinary symptoms. Patient also states has had some constipation issues over the last 2 months. Been taking MiraLAX at home. He had a small bowel movement this morning. He denies any blood in his stool or black tarry stool. Patient scheduled to follow-up with GI tomorrow. [facility] Medical History Hypothyroid Home Medications ?Medication ?Instructions ?Recorded ?Last Taken ?Type amlodipine 5 mg tablet (Norvasc) 5 mg PO DAILY #30 tabs 12/23/24 Unknown Rx lansoprazole 30 mg capsule,delayed 30 mg PO DAILY #14 caps 12/23/24 Unknown Rx release (Prevacid) levothyroxine 137 mcg tablet 137 mcg PO DAILY 12/23/24 12/23/24 History (Euthyrox) Allergy/AdvReac Type Severity Reaction Status Date / Time No Known Allergies Allergy Verified 12/23/24 08:35 Social History Smoking Status: Never smoker ROS ROS ED Review of Systems ROS Unobtainable: other Constitutional Constitutional ED: Reports lethargy; Denies chills, fever(s), sweats or weight loss Eyes Eyes: Denies blurry vision, change in vision or diplopia ENT ENT ED: Denies rhinorrhea or sore throat Cardiovascular Cardiovascular: Denies chest pain, orthopnea or racing heartbeat Respiratory/Chest Respiratory/Chest: Denies cough, dyspnea, dyspnea on exertion, orthopnea or sputum Gastrointestinal Gastrointestinal: Reports abdominal pain; Denies diarrhea, nausea or vomiting Genitourinary Genitourinary ED: Denies dysuria, hematuria or urinary frequency Musculoskeletal Musculoskeletal: Denies arthralgias, back pain, myalgias or neck pain Integumentary Denies abscess, Abrasions or rash Neurologic Neurologic: Denies headache(s) or weakness Psychiatric Psychiatric: Denies anxiety, depression or suicidal thoughts Endocrine Endocrinology: Denies polydipsia, polyphagia or polyuria Hematologic/Lymphatic Hematologic/Lymphatic: Denies easy bleeding, easy bruising or lymphadenopathy Allergic/Immunologic Allergic/Immunologic ED: Denies mouth swelling, tongue swelling or urticaria EXAM Physical Exam Const Vital Signs: 12/23/24 08:35 12/23/24 10:35 Temperature 98.0 F Temperature Source Oral Pulse Rate 78 69 Respiratory Rate 16 18 Blood Pressure 206/119 H 182/98 H Blood Pressure Mean 148 126 Pulse Ox 99 98 Oxygen Delivery Method Room Air Room Air Positive well nourished and well developed General Appearance ED: well developed and NAD HEENT Reports TM's clear and moist mucous membranes normocephalic and atraumatic; Negative for trauma or tenderness Tympanic Membrane ED: Yes TM's clear Eyes PERRL and EOMs intact bilaterally General Eye ED: Negative for pale conjunctiva or scleral icterus Neck no lymphadenopathy, supple and no JVD General: Negative for tenderness Chest Wall inspection of chest normal and palpation of chest normal Chest: Negative for tenderness Resp normal respiratory effort and clear to auscultation bilaterally Effort and Inspection: Negative for respiratory distress or pain with movement Auscultation: Negative for rhonchi, wheezes or diminished lung sounds Cardio regular rate, regular rhythm, S1 normal heart sound, S2 normal heart sound and no murmurs Peripheral Pulses: pulses 2+ throughout GI normal to inspection, nondistended, normoactive bowel sounds, soft to palpation, non-distended and no masses GI Narrative: Diffuse tenderness to palpation to the right upper quadrant as well as the epigastric region. Point of maximum tenderness however seems to be in the right lower quadrant with some guarding. There is no rebound, rigidity, or peritoneal signs. No mass palpated. Back/Spine no CVA tenderness and no thoracic nor lumbar tenderness Extremity normal to inspection General Extremety ED: Negative for edema General Extremity: Negative for edema Neuro oriented x3, CN's II-XII intact bilaterally, no sensory deficits noted and gait normal Sensorium / Orientation: awake, alert, oriented to person, oriented to place and oriented to time Motor Exam: strength 5/5 throughout and strength abnormal Psych mental status grossly normal Skin no rashes or lesions noted and no wounds MDM MDM MDM Narrative Medical decision making narrative: Patient presents with upper abdomen pain and off-and-on constipation. When eating he develops pain by 10 minutes later. Denies fever. Scheduled to see cycle director tomorrow. IV line established. CBC with differential obtained showed a white count of 7.2 with hemoglobin 12.8 and platelet count of 403. Chemistries unremarkable. LFTs were normal. Lipase was slightly elevated 185 but not 3 times normal. Urinalysis was negative. CT scan of the abdomen pelvis shows no acute abnormality. CT was done with IV contrast. Patient did present hypertensive and did obtain an EKG that showed a sinus rhythm with ventricular rate of 65 bpm with right bundle branch block and left anterior fascicular block. Troponin was normal at 14. He received labetalol IV 20 mg. Will start him on Norvasc as he states that he has had at times elevated blood pressures when checked at the primary care physician's office. Recommended he follow-up with his primary care physician regarding his blood pressure and also keep his appointment with GI tomorrow he may need further testing such as possibly EGD to evaluate further. Patient will be started on Prevacid as well for 14 days. Lab Data Attestation: I reviewed the patient's lab results. Labs: Laboratory Results - last 24 hr 12/23/24 09:17 WBC 7.2 RBC 4.29 L Hgb 12.8 L Hct 38.5 L MCV 89.7 MCH 29.8 MCHC 33.2 RDW Std Deviation 45.2 H RDW Coeff of [place] 13.7 Plt Count 403 MPV 9.3 Immature Gran % (Auto) 0.100 Neut % (Auto) 52.3 Lymph % (Auto) 30.0 [place] % (Auto) 7.4 Eos % (Auto) 8.8 H Baso % (Auto) 1.4 H Absolute Neuts (auto) 3.7 Absolute Lymphs (auto) 2.15 Nucleated RBC % 0 Sodium 137 Potassium 4.1 Chloride 104 Carbon Dioxide 23.8 Anion Gap 10 BUN 12 Creatinine 1.16 Estim Creat Clear Calc 51.94 Est GFR (MDRD) Non-Af 67 BUN/Creatinine Ratio 10.1 Glucose 95 Lactic Acid 1.1 Calcium 9.5 Total Bilirubin 0.79 AST 22 ALT 12 Alkaline Phosphatase 80 Troponin T High Sens 14 Total Protein 7.6 Albumin 3.9 Globulin 3.7 Albumin/Globulin Ratio 1.0 Lipase 185 H Urine Color Yellow Urine Clarity Clear Urine pH 7.0 Ur Specific [place] 1.005 Urine Protein TNP Urine Glucose (UA) Normal Urine Ketones Negative Urine Occult Blood Negative Urine Nitrite Negative Urine Bilirubin Negative Urine Urobilinogen Normal Ur Leukocyte Esterase Negative Urine RBC 0 SEEN Urine WBC 0 SEEN Ur Squamous Epith Cells 0 SEEN Urine Bacteria 0 SEEN Urine Mucus 0 SEEN Radiography Diagnostic Testing: Clinical Impression(s) from Imaging Studies Abdomen/Pelvis CT 12/23/24 08:44 IMPRESSION: No acute abdominopelvic finding. Reading Location: [facility] Discharge Plan Triage Chief Complaint: Abd Pain ED Provider: Kamala Berger Dx/Rx/DC Orders Clinical Impression: Abdominal pain, Hypertension Instructions: ED Abdominal Pain Unkn Cause Fem, ED Hypertension New Begin Treatment Prescriptions: New amlodipine [Norvasc] 5 mg tablet 5 mg PO DAILY Qty: 30 0RF lansoprazole [Prevacid] 30 mg capsule,delayed release(DR/EC) 30 mg PO DAILY Qty: 14 0RF No Action levothyroxine [Euthyrox] 137 mcg tablet 137 mcg PO DAILY Primary Care Provider: Fabio Packer Referrals: Fabio Packer MD [Primary Care Provider] - 3-5 Days Activity Restrictions/Additional Instructions: <del>Keep</del> <del>your</del> <del>appointment</del> <del>with</del> <del></del> <del>Jayda</del> <del>for</del> <del>tomorrow.</del> Print Language: [place] Disposition Disposition: Home, Self Care
[2024-12-23 09:25] LABS: Bacteria 0 SEEN /hpf (None Seen); Mucous, Urine 0 SEEN /hpf (<or=2+); Red Blood Cells-Urine 0 SEEN /hpf (0-5); Squamous Epithelial Cells - UA 0 SEEN /hpf (0-5); White Blood Cells 0 SEEN /hpf (0-5)
[2024-12-23] MEDS: 0.9% Normal Saline (1000mL) 1,000 ML 125 ML IV (09:26)
[2024-12-23 09:36] LABS: Absolute Lymphocyte Count 2.15 X10^3/uL (0.83-4.51); Absolute Neutrophil Count 3.7 X10^3/uL (2.0-7.7); Basophil% 1.4 % (0-1); Eosinophil# 0.63 X10^3/uL; Eosinophils% 8.8 % (0-5); Hematocrit 38.5 % (40-54); Hemoglobin 12.8 g/dL (13.0-16.5); Lymphocyte # 2.15 X10^3/ul (0.83-4.51); Mean Corp Hgb Conc 33.2 g/dL (32-36); Mean Corpuscular Hgb 29.8 pg (27.0-32.0); Mean Corpuscular Volume 89.7 fL (80-94); Mean Platelet Vol. 9.3 fl (6.2-12.0); Monocyte# 0.53 X10^3/uL; Monocyte% 7.4 % (0-10); NRBC Flagged by Analyzer 0 % (0-5); Neutrophil # 3.74 X10^3/uL (2.7-7.7); Neutrophil % 52.3 % (47-70); Platelet Count 403 K/mm3 (150-450); RBC Distribution Width CV 13.7 % (11.6-14.6); RBC Distribution Width SD 45.2 fl (35.1-43.9); Red Blood Count 4.29 M/mm3 (4.6-6.2); White Blood Count 7.2 K/mm3 (4.4-11.0)
[2024-12-23 09:39] LABS: Color, Urine Yellow (Yellow); Glucose, Dipstick Normal (Normal); Ketone-Dipstick Negative (Negative); Leukocyte Esterase-Dipstick Negative /ul (Negative); Nitrite-Dipstick Negative (Negative); Occult Blood-Urine Negative /ul (Negative); Specific Gravity, Urine 1.005 (1.002-1.030); Urine Bilirubin Dipstick Negative (Negative); Urine Clarity Clear (Clear); Urine Urobilinogen Normal (Normal)
[2024-12-23 09:56] LABS: AST(SGOT) 22 U/L (<=37); Alanine Aminotransfer ALT/SGPT 12 U/L (<=46); Albumin, Serum 3.9 g/dL (3.4-4.8); Alkaline Phosphatase 80 U/L (40-129); Anion Gap 10 (5-15); BUN 12 mg/dL (4-19); BUN/Creat Ratio 10.1 RATIO (10-20); Calcium,Total 9.5 mg/dL (7.6-11.0); Carbon Dioxide 23.8 mmol/L (21.0-32.0); Chloride 104 mmol/L (98-108); Creatinine, Serum 1.16 mg/dL (0.70-1.20); EST Glomerular Filtration Rate 67 (>60); Estimated Creatinine Clearance 51.94 ml/min (50-250); Globulin 3.7 g/dL (2.2-4.2); Glucose 95 mg/dL (70-99); Lipase 185 U/L (13-75); Potassium 4.1 mmol/L (3.3-5.1); Protein, Total 7.6 g/dL (5.9-8.4); Sodium Level 137 mmol/L (133-145); Total Bilirubin 0.79 mg/dL (0.00-1.30)
[2024-12-23 09:57] LABS: Lactic Acid 1.1 mmol/L (0.0-2.0)
--- NOTE | 2024-12-23 10:19 | EKG12_ITS ---
Test Reason : ABD PAIN Blood Pressure : */* mmHG Vent. Rate : 65 BPM Atrial Rate : 65 BPM P-R Int : 192 ms QRS Dur : 138 ms QT Int : 468 ms P-R-T Axes : 59 -48 7 degrees QTcB Int : 486 ms Normal sinus rhythm Right bundle branch block Left anterior fascicular block Bifascicular block Minimal voltage criteria for LVH, may be normal variant ( R in aVL ) Abnormal ECG Confirmed by Meliton Seo ([id number]), supervising editor news reel LUIS LECHUGA ([id number]) on 12/24/2024 10:59:43 AM Referred By: Confirmed By: Meliton Seo
[2024-12-23 10:35] VITALS: BP 182/98; PULSE 69; RESP 18; O2SAT 98
[2024-12-23] MEDS: Labetalol 20 MG/4 ML Vial IV (10:44)
[2024-12-23 10:57] LABS: Troponin T High Sensitivity 14 ng/L (<=22)
[2024-12-23 11:23] VITALS: BP 170/71; PULSE 78; RESP 16; TEMP 36.6; O2SAT 99
== END 2024-12-23 11:24 | disposition home or self-care (01) ==
PROVIDERS: Emergency Provider Emergency Medicine; PCP Family Medicine; Visit Provider Emergency Medicine
DX: R10.9 Unspecified abdominal pain (principal); I10 Essential (primary) hypertension; E03.9 Hypothyroidism, unspecified
CPT/HCPCS: 74177; 80053; 81001; 83605; 83690; 84484; 85025; 93005; 96361; 96374; 99283; Q9967

== ENCOUNTER → 2025-04-11 | Outpatient (CLI) | payer OTHER, SELFPAY ==
[2025-04-11 12:31] LABS: Hematocrit 38.4 % (40-54); Hemoglobin 12.5 g/dL (13.0-16.5); Immature Granulocytes Count 0.020 X10^3/uL (0.0-0.0); Mean Corp Hgb Conc 32.6 g/dL (32-36); Mean Corpuscular Volume 91.0 fL (80-94); Mean Platelet Vol. 9.9 fl (6.2-12.0); NRBC Flagged by Analyzer 0 % (0-5); Platelet Count 389 K/mm3 (150-450); RBC Distribution Width CV 13.5 % (11.6-14.6); RBC Distribution Width SD 45.4 fl (35.1-43.9); Red Blood Count 4.22 M/mm3 (4.6-6.2); White Blood Count 7.2 K/mm3 (4.4-11.0)
[2025-04-11 12:53] LABS: Creatinine, Urine (random) 40.20 mg/dL (39.00-259.00); Protein, Urine (Random) < 6.0 mg/dL (0.0-12.0); Protein:Creat Ratio UNABLE TO CALCULATE mg/g CRE (0-200)
[2025-04-11 12:54] LABS: PTHIN 31 pg/mL (11-61)
[2025-04-11 13:05] LABS: FOLATES,SERUM (FOLIC ACID) 11.90 ng/mL (4.60-34.80)
[2025-04-11 14:00] LABS: Iron Binding Capacity,Total 243 ug/dL (250-450)
[2025-04-11 14:01] LABS: AST(SGOT) 26 U/L (<=37); Alanine Aminotransfer ALT/SGPT 20 U/L (<=46); Albumin, Serum 4.0 g/dL (3.4-4.8); Alkaline Phosphatase 75 U/L (40-129); Anion Gap 13 (5-15); BUN 19 mg/dL (4-19); BUN/Creat Ratio 16.8 RATIO (10-20); Calcium,Total 9.8 mg/dL (7.6-11.0); Carbon Dioxide 21.5 mmol/L (21.0-32.0); Chloride 104 mmol/L (98-108); Ferritin 107 ng/mL (37-417); Globulin 3.6 g/dL (2.2-4.2); Glucose 100 mg/dL (70-99); Iron 106 ug/dL (65-175); Iron Binding Capacity,Unsat 137 ug/dL (228-428); PSA,Total - Annual Screen 0.71 ng/mL (0.02-4.00); Potassium 4.3 mmol/L (3.3-5.1); Vitamin B12 371 pg/mL (180-914); Vitamin D,25 Hydroxy 32.6 ng/mL (30-100)
== END | disposition home or self-care (01) ==
LOC: MFPLAB 09:25
PROVIDERS: PCP Family Medicine; Visit Provider Family Medicine
DX: D64.9 Anemia, unspecified (principal); N18.30 Chronic kidney disease, stage 3 unspecified; E03.9 Hypothyroidism, unspecified; Z12.5 Encounter for screening for malignant neoplasm of prostate; E55.9 Vitamin D deficiency, unspecified
CPT/HCPCS: 36415; 80053; 82306; 82570; 82607; 82728; 82746; 83540; 83550; 83970; 84153; 84156; 84439; 84443; 85025; G0103